=== PATIENT | male | born 1950 | race Caucasian/White ===

== ENCOUNTER 2017-11-27 05:25 | Inpatient (IN) | payer MEDICARE, BC ==
[2017-11-27] MEDS: ASPIRIN 325 MG TAB PO (06:35)
[2017-11-27] MEDS: NITROGLYCERIN 2% 1 GM OINT PKT TD (06:36)
[2017-11-27] MEDS: FUROSEMIDE 40 MG INJ IV ×3 (06:36→18:24)
[2017-11-27] MEDS: morphine 4 MG/ML VIAL IV (06:37)
[2017-11-27 06:46] LABS: ADD MAN DIFF? NO
[2017-11-27 06:49] LABS: BASOPHIL # 0.1 10^3/ul (0.0-0.1); BASOPHILS % 0.8 % (0.0-2.0); EOSINOPHILS # 0.2 10^3/ul (0.0-0.5); EOSINOPHILS % 2.5 % (0.0-7.0); HEMATOCRIT 51.4 % (42.0-52.0); HEMOGLOBIN 16.9 g/dl (14.0-18.0); LYMPHOCYTES # 0.7 10^3/ul (0.8-2.9); MEAN CORPUSCULAR HEMOGLOBIN 28.2 pg (29.0-33.0); MEAN CORPUSCULAR HGB CONC 32.9 g/dl (32.0-37.0); MEAN CORPUSCULAR VOLUME 85.8 fl (82.0-101.0); MEAN PLATELET VOLUME 10.1 fl (7.4-10.4); MONOCYTE # 0.6 10^3/ul (0.3-0.9); MONOCYTES % 8.6 % (0.0-11.0); NEUTROPHIL # 4.9 10^3/ul (1.6-7.5); NEUTROPHILS % 76.8 % (39.0-77.0); PLATELET COUNT 213 10^3/UL (140-415); RED BLOOD COUNT 5.99 10^6/ul (4.70-6.10); RED CELL DISTRIBUTION WIDTH 15.8 % (11.5-14.5)
[2017-11-27 06:49] LABS: WHITE BLOOD COUNT 6.4 10^3/ul (4.8-10.8)
[2017-11-27 07:16] LABS: ANION GAP 18 (8-16); BLOOD UREA NITROGEN 16 mg/dl (7-20); CALCIUM 9.1 mg/dl (8.4-10.2); CARBON DIOXIDE 24 mmol/L (21-31); CHLORIDE 112 mmol/L (97-110); CREATININE 1.09 mg/dl (0.61-1.24); GLUCOSE 130 mg/dl (70-220); POTASSIUM 4.2 mmol/L (3.5-5.1); SODIUM 150 mmol/L (135-144)
[2017-11-27 07:28] LABS: TROPONIN-I 0.056 ng/ml (0.00-0.12)
[2017-11-27] MEDS: ONDANSETRON 4 MG INJ IV (07:35)
[2017-11-27 08:10] LABS: B-TYPE NATRIURETIC PEPTIDE 4760 PG/ML (0-125)
[2017-11-27] MEDS ORDERED: ACETAMINOPHEN 325 MG TAB PO ×2 (09:00→14:30)
[2017-11-27] MEDS ORDERED: ONDANSETRON 4 MG INJ IV ×2 (09:00→14:30)
[2017-11-27] MEDS: DILTIAZEM-D5W 125MG/125ML DRIP 125 ML IV (10:32)
[2017-11-27] MEDS ORDERED: NACL 0.9% 3 ML SYG IV (14:30)
[2017-11-27] MEDS ORDERED: DOCUSATE SODIUM 100 MG CAP PO (14:30)
[2017-11-27] MEDS ORDERED: ZOLPIDEM 5 MG TAB PO (14:30)
[2017-11-27] MEDS ORDERED: NITROGLYCERIN (SL) 0.4 MG TAB SL (14:30)
[2017-11-27] MEDS ORDERED: HYDROCODONE/APAP (5/325) TAB PO (14:30)
[2017-11-27] MEDS ORDERED: morphine 2 MG INJ IV (14:30)
[2017-11-27] MEDS ORDERED: hydrALAzine 20 MG INJ IV (16:00)
[2017-11-27 20:28] LABS: CREATINE KINASE 52 IU/L (23-200)
[2017-11-27 20:41] LABS: CK-MB 1.55 ng/ml (0.0-2.4); TROPONIN-I 0.042 ng/ml (0.00-0.12)
[2017-11-27] MEDS ORDERED: APIXABAN 5 MG TABLET PO (21:00)
[2017-11-27] MEDS: FAMOTIDINE 20 MG TAB PO (23:16)
[2017-11-27] MEDS: LISINOPRIL 20 MG TAB PO (23:16)
[2017-11-27] MEDS: APIXABAN 5 MG TABLET PO (23:16)
[2017-11-27] MEDS: AMLODIPINE 5 MG TAB PO (23:17)
[2017-11-28] MEDS: FUROSEMIDE 40 MG INJ IV ×2 (05:35→18:37)
[2017-11-28] MEDS: METOPROLOL (XL) 25 MG TAB PO (08:22)
[2017-11-28] MEDS: APIXABAN 5 MG TABLET PO ×2 (08:29→20:09)
[2017-11-28] MEDS: ASPIRIN 81 MG TAB PO (08:29)
[2017-11-28] MEDS: LISINOPRIL 20 MG TAB PO ×2 (08:30→20:10)
[2017-11-28] MEDS: POTASSIUM CHLORIDE (SR) 20 MEQ TAB PO (08:30)
[2017-11-28] MEDS: AMLODIPINE 5 MG TAB PO ×2 (08:31→20:10)
[2017-11-28] MEDS: FAMOTIDINE 20 MG TAB PO ×2 (08:31→20:10)
[2017-11-28] MEDS ORDERED: AMLODIPINE 5 MG TAB PO (09:00)
[2017-11-28] MEDS ORDERED: ENOXAPARIN 30 MG/0.3 ML SYG SC (09:00)
[2017-11-28] MEDS ORDERED: FUROSEMIDE 40 MG INJ IV (09:00)
[2017-11-28 09:23] LABS: ADD MAN DIFF? NO
[2017-11-28 09:30] LABS: BASOPHILS % 0.6 % (0.0-2.0); EOSINOPHILS # 0.2 10^3/ul (0.0-0.5); EOSINOPHILS % 2.1 % (0.0-7.0); HEMATOCRIT 45.5 % (42.0-52.0); HEMOGLOBIN 14.9 g/dl (14.0-18.0); LYMPHOCYTES # 0.8 10^3/ul (0.8-2.9); MEAN CORPUSCULAR HEMOGLOBIN 28.1 pg (29.0-33.0); MEAN CORPUSCULAR HGB CONC 32.7 g/dl (32.0-37.0); MEAN CORPUSCULAR VOLUME 85.7 fl (82.0-101.0); MEAN PLATELET VOLUME 10.5 fl (7.4-10.4); MONOCYTE # 0.9 10^3/ul (0.3-0.9); MONOCYTES % 12.7 % (0.0-11.0); NEUTROPHIL # 5.1 10^3/ul (1.6-7.5); NEUTROPHILS % 73.5 % (39.0-77.0); PLATELET COUNT 183 10^3/UL (140-415); RED BLOOD COUNT 5.31 10^6/ul (4.70-6.10); RED CELL DISTRIBUTION WIDTH 15.6 % (11.5-14.5)
[2017-11-28 09:37] LABS: HEMOGLOBIN A1C 7.7 % (0-5.9)
[2017-11-28 10:00] LABS: CREATINE KINASE 50 IU/L (23-200)
[2017-11-28 10:10] LABS: CK INDEX 2.5; TROPONIN-I 0.053 ng/ml (0.00-0.12)
[2017-11-28 10:11] LABS: CK-MB 1.25 ng/ml (0.0-2.4)
[2017-11-28 10:12] LABS: ALANINE AMINOTRANSFERASE 26 IU/L (13-69); ALBUMIN 3.1 g/dl (3.3-4.9); ALBUMIN/GLOBULIN RATIO 1.06; ALKALINE PHOSPHATASE 102 IU/L (42-121); ASPARTATE AMINO TRANSFERASE 18 IU/L (15-46); BILIRUBIN,INDIRECT 2.1 mg/dl (0-1.1); BILIRUBIN,TOTAL 2.1 mg/dl (0.2-1.3); BLOOD UREA NITROGEN 21 mg/dl (7-20); CALCIUM 8.8 mg/dl (8.4-10.2); CARBON DIOXIDE 30 mmol/L (21-31); CREATININE 1.07 mg/dl (0.61-1.24); GLUCOSE 125 mg/dl (70-220); MAGNESIUM 1.5 mg/dl (1.7-2.5); POTASSIUM 3.7 mmol/L (3.5-5.1); SODIUM 141 mmol/L (135-144)
[2017-11-28 10:15] LABS: ANION GAP 12 (8-16); CHLORIDE 103 mmol/L (97-110)
[2017-11-28 13:27] LABS: THYROID STIMULATING HORMONE 0.813 MIU/L (0.465-4.680)
[2017-11-28] MEDS: MAGNESIUM SULFATE 1 GM/D5W 100 ML IVPB (17:20)
[2017-11-29] MEDS: FUROSEMIDE 40 MG INJ IV ×2 (05:38→17:58)
[2017-11-29] MEDS: INFLUENZA VIRUS VACCINE 0.5 ML (DISPENSING) IM* (09:00)
[2017-11-29] MEDS: POTASSIUM CHLORIDE (SR) 20 MEQ TAB PO (09:17)
[2017-11-29] MEDS: APIXABAN 5 MG TABLET PO (09:17)
[2017-11-29] MEDS: ASPIRIN 81 MG TAB PO (09:18)
[2017-11-29] MEDS: FAMOTIDINE 20 MG TAB PO (09:18)
[2017-11-29] MEDS: AMLODIPINE 5 MG TAB PO (09:18)
[2017-11-29] MEDS: LISINOPRIL 20 MG TAB PO (09:18)
[2017-11-29 09:47] LABS: ADD MAN DIFF? NO
[2017-11-29 09:51] LABS: WHITE BLOOD COUNT 6.3 10^3/ul (4.8-10.8)
[2017-11-29 09:51] LABS: BASOPHILS % 0.6 % (0.0-2.0); EOSINOPHILS # 0.2 10^3/ul (0.0-0.5); EOSINOPHILS % 3.7 % (0.0-7.0); HEMATOCRIT 47.8 % (42.0-52.0); HEMOGLOBIN 15.7 g/dl (14.0-18.0); LYMPHOCYTES # 0.7 10^3/ul (0.8-2.9); LYMPHOCYTES % 11.1 % (15.0-51.0); MEAN CORPUSCULAR HEMOGLOBIN 27.9 pg (29.0-33.0); MEAN CORPUSCULAR HGB CONC 32.8 g/dl (32.0-37.0); MEAN CORPUSCULAR VOLUME 85.1 fl (82.0-101.0); MEAN PLATELET VOLUME 10.9 fl (7.4-10.4); MONOCYTE # 0.7 10^3/ul (0.3-0.9); MONOCYTES % 10.7 % (0.0-11.0); NEUTROPHIL # 4.6 10^3/ul (1.6-7.5); NEUTROPHILS % 73.6 % (39.0-77.0); PLATELET COUNT 188 10^3/UL (140-415); RED BLOOD COUNT 5.62 10^6/ul (4.70-6.10)
[2017-11-29 10:14] LABS: CREATINE KINASE 47 IU/L (23-200)
[2017-11-29 10:14] LABS: MAGNESIUM 1.6 mg/dl (1.7-2.5)
[2017-11-29 10:24] LABS: CK INDEX 2.1; CK-MB 1.01 ng/ml (0.0-2.4); TROPONIN-I 0.042 ng/ml (0.00-0.12)
[2017-11-29 10:25] LABS: ANION GAP 16 (8-16); BLOOD UREA NITROGEN 22 mg/dl (7-20); CALCIUM 8.9 mg/dl (8.4-10.2); CARBON DIOXIDE 29 mmol/L (21-31); CHLORIDE 101 mmol/L (97-110); CREATININE 1.01 mg/dl (0.61-1.24); GLUCOSE 157 mg/dl (70-220); POTASSIUM 3.8 mmol/L (3.5-5.1); SODIUM 142 mmol/L (135-144)
[2017-11-29] MEDS: MAGNESIUM SULFATE 3 GM in DEXTROSE 5% 100 ML IVPB (15:07)
[2017-11-29] MEDS: LEVALBUTEROL (NEB) 0.63 MG/3 ML AMP HHN (15:41)
[2017-11-29] MEDS ORDERED: DEXTROSE 50% 50 ML SYRINGE IV ×2 (17:30)
[2017-11-29] MEDS ORDERED: GLUCOSE GEL 15 GRAM TUBE BUCCAL (17:30)
[2017-11-29] MEDS ORDERED: GLUCOSE GEL 15 GRAM TUBE PO ×2 (17:30)
[2017-11-29] MEDS ORDERED: GLUCAGON 1 MG INJ IM (17:30)
[2017-11-29] MEDS: Discontinue current oral sulfonylureas (glyburide, glipizide, and/or glimepiride) prior to XX (17:52)
[2017-11-29] MEDS: HYPOGLYCEMIA PROTOCOL when Glucose is <70 mg/dL or symptomatic <90 mg/dL. XX (17:54)
[2017-11-29] MEDS: metFORMIN 500 MG TAB PO (17:58)
[2017-11-29] MEDS: INSULIN ASPART [NOVOLOG] 3 ML PEN SC (18:03)
[2017-11-30] MEDS ORDERED: ACCU-CHEK XX (02:00)
[2017-11-30] MEDS ORDERED: METOLAZONE 5 MG TAB PO (09:00)
[2017-11-30] MEDS ORDERED: LINAGLIPTIN 5 MG TABLET PO (09:00)
== END 2017-11-29 19:51 | disposition left against medical advice (07) | DRG 291 ==
LOC: E/R 05:25 → MS4 08:58
DX: I11.0 Hypertensive heart disease with heart failure (principal); J96.00 Acute respiratory failure, unspecified whether with hypoxia or hypercapnia; E87.0 Hyperosmolality and hypernatremia; I50.43 Acute on chronic combined systolic (congestive) and diastolic (congestive) heart failure; J44.9 Chronic obstructive pulmonary disease, unspecified; E11.9 Type 2 diabetes mellitus without complications; I42.9 Cardiomyopathy, unspecified; Z79.01 Long term (current) use of anticoagulants; Z86.73 Personal history of transient ischemic attack (TIA), and cerebral infarction without residual deficits; I48.91 Unspecified atrial fibrillation; I25.10 Atherosclerotic heart disease of native coronary artery without angina pectoris; Z91.19 Patient's noncompliance with other medical treatment and regimen
CPT/HCPCS: 36415; 71045; 80048; 80053; 82550; 82553; 82962; 83036; 83735; 83880; 84443; 84484; 85025; 93005; 93306; 94664; 96374; 96375; 96376; 99285-25

== ENCOUNTER 2017-12-12 23:33 | Inpatient (IN) | payer MEDICARE, BC ==
[2017-12-13 01:01] LABS: ADD MAN DIFF? NO
[2017-12-13 01:03] LABS: BASOPHIL # 0.1 10^3/ul (0.0-0.1); BASOPHILS % 0.8 % (0.0-2.0); EOSINOPHILS # 0.1 10^3/ul (0.0-0.5); EOSINOPHILS % 1.9 % (0.0-7.0); HEMATOCRIT 47.5 % (42.0-52.0); LYMPHOCYTES # 0.8 10^3/ul (0.8-2.9); LYMPHOCYTES % 13.4 % (15.0-51.0); MEAN CORPUSCULAR HEMOGLOBIN 28.3 pg (29.0-33.0); MEAN CORPUSCULAR HGB CONC 33.7 g/dl (32.0-37.0); MEAN CORPUSCULAR VOLUME 84.1 fl (82.0-101.0); MEAN PLATELET VOLUME 10.1 fl (7.4-10.4); MONOCYTE # 0.6 10^3/ul (0.3-0.9); MONOCYTES % 10.8 % (0.0-11.0); NEUTROPHIL # 4.3 10^3/ul (1.6-7.5); NEUTROPHILS % 72.9 % (39.0-77.0); PLATELET COUNT 232 10^3/UL (140-415); RED BLOOD COUNT 5.65 10^6/ul (4.70-6.10); RED CELL DISTRIBUTION WIDTH 15.7 % (11.5-14.5)
[2017-12-13 01:03] LABS: WHITE BLOOD COUNT 5.9 10^3/ul (4.8-10.8)
[2017-12-13 01:19] LABS: ADD UMIC YES; UR ASCORBIC ACID NEGATIVE (NEGATIVE); UR BILIRUBIN (Dip) NEGATIVE (NEGATIVE); UR BLOOD (Dip) NEGATIVE (NEGATIVE); UR CLARITY CLEAR (CLEAR); UR COLOR YELLOW (YELLOW); UR GLUCOSE (Dip) 2+ mg/dL (NEGATIVE); UR KETONES (Dip) NEGATIVE (NEGATIVE); UR LEUKOCYTE ESTERASE (Dip) NEGATIVE Leu/ul (NEGATIVE); UR NITRITE (Dip) NEGATIVE (NEGATIVE); UR RBC 1 /HPF (0-5); UR SPECIFIC GRAVITY (Dip) 1.011 (1.003-1.030); UR TOTAL PROTEIN (Dip) 3+ mg/dl (NEGATIVE); UR UROBILINOGEN (Dip) 2+ mg/dL (NEGATIVE); UR WBC 0 /HPF (0-5)
[2017-12-13 01:21] LABS: ALANINE AMINOTRANSFERASE 20 IU/L (13-69); ALBUMIN 3.9 g/dl (3.3-4.9); ALBUMIN/GLOBULIN RATIO 1.14; ALKALINE PHOSPHATASE 134 IU/L (42-121); ANION GAP 18 (8-16); ASPARTATE AMINO TRANSFERASE 23 IU/L (15-46); BILIRUBIN,INDIRECT 1.5 mg/dl (0-1.1); BILIRUBIN,TOTAL 1.5 mg/dl (0.2-1.3); BLOOD UREA NITROGEN 12 mg/dl (7-20); CALCIUM 9.2 mg/dl (8.4-10.2); CARBON DIOXIDE 25 mmol/L (21-31); CHLORIDE 107 mmol/L (97-110); CREATININE 0.87 mg/dl (0.61-1.24); GLUCOSE 199 mg/dl (70-220); POTASSIUM 3.7 mmol/L (3.5-5.1); SODIUM 146 mmol/L (135-144); TOTAL PROTEIN 7.3 g/dl (6.1-8.1)
[2017-12-13 01:23] LABS: LACTIC ACID 2.2 mmol/L (0.5-2.0)
[2017-12-13 01:24] LABS: INR 1.12; PROTIME 14.6 Sec (11.9-14.9); PT RATIO 1.1
[2017-12-13 01:25] LABS: PARTIAL THROMBOPLASTIN TIME 37.7 Sec (25.0-35.0)
[2017-12-13 01:33] LABS: B-TYPE NATRIURETIC PEPTIDE 6030 PG/ML (0-125); TROPONIN-I 0.056 ng/ml (0.00-0.12)
[2017-12-13] MEDS: FUROSEMIDE 40 MG INJ IV ×4 (01:58→18:22)
[2017-12-13] MEDS: CEFEPIME 1GM/50 ML (PMX) 50 ML IVPB (03:08)
[2017-12-13] MEDS: VANCOMYCIN 1 GM (PMX) 250 ML IVPB (03:09)
[2017-12-13] MEDS: ENALAPRILAT 1.25 MG INJ IV (04:41)
[2017-12-13] MEDS ORDERED: ENALAPRILAT 1.25 MG INJ IV (05:00)
[2017-12-13 08:33] LABS: LACTIC ACID 1.7 mmol/L (0.5-2.0)
[2017-12-13] MEDS ORDERED: GLUCOSE GEL 15 GRAM TUBE BUCCAL (10:00)
[2017-12-13] MEDS ORDERED: GLUCOSE GEL 15 GRAM TUBE PO ×2 (10:00)
[2017-12-13] MEDS ORDERED: DEXTROSE 50% 50 ML SYRINGE IV ×2 (10:00)
[2017-12-13] MEDS ORDERED: GLUCAGON 1 MG INJ IM (10:00)
[2017-12-13 10:56] LABS: LACTIC ACID 1.8 mmol/L (0.5-2.0)
[2017-12-13] MEDS: INSULIN ASPART [NOVOLOG] 3 ML PEN SC ×3 (13:03→20:51)
[2017-12-13] MEDS: LEVALBUTEROL (NEB) 0.63 MG/3 ML AMP HHN (13:25)
[2017-12-13 19:45] LABS: TROPONIN-I 0.045 ng/ml (0.00-0.12)
[2017-12-13] MEDS: LISINOPRIL 20 MG TAB PO (20:51)
[2017-12-13] MEDS: APIXABAN 5 MG TABLET PO (20:51)
[2017-12-14] MEDS: FUROSEMIDE 40 MG INJ IV ×2 (05:27→17:35)
[2017-12-14 08:31] LABS: ADD MAN DIFF? NO
[2017-12-14 08:40] LABS: BASOPHIL # 0.1 10^3/ul (0.0-0.1); BASOPHILS % 1.2 % (0.0-2.0); EOSINOPHILS # 0.3 10^3/ul (0.0-0.5); EOSINOPHILS % 4.5 % (0.0-7.0); HEMATOCRIT 48.2 % (42.0-52.0); HEMOGLOBIN 16.2 g/dl (14.0-18.0); LYMPHOCYTES # 0.9 10^3/ul (0.8-2.9); LYMPHOCYTES % 14.8 % (15.0-51.0); MEAN CORPUSCULAR HEMOGLOBIN 28.4 pg (29.0-33.0); MEAN CORPUSCULAR HGB CONC 33.6 g/dl (32.0-37.0); MEAN CORPUSCULAR VOLUME 84.4 fl (82.0-101.0); MEAN PLATELET VOLUME 10.5 fl (7.4-10.4); MONOCYTE # 0.7 10^3/ul (0.3-0.9); MONOCYTES % 12.4 % (0.0-11.0); NEUTROPHILS % 66.8 % (39.0-77.0); PLATELET COUNT 200 10^3/UL (140-415); RED BLOOD COUNT 5.71 10^6/ul (4.70-6.10); RED CELL DISTRIBUTION WIDTH 15.7 % (11.5-14.5)
[2017-12-14] MEDS: LISINOPRIL 20 MG TAB PO ×2 (08:44→21:17)
[2017-12-14] MEDS: APIXABAN 5 MG TABLET PO ×2 (08:45→21:16)
[2017-12-14] MEDS: AMLODIPINE 5 MG TAB PO (08:45)
[2017-12-14] MEDS: INSULIN ASPART [NOVOLOG] 3 ML PEN SC ×4 (08:46→21:23)
[2017-12-14 08:52] LABS: ANION GAP 14 (8-16); BLOOD UREA NITROGEN 16 mg/dl (7-20); CALCIUM 8.8 mg/dl (8.4-10.2); CARBON DIOXIDE 33 mmol/L (21-31); CHLORIDE 99 mmol/L (97-110); CREATININE 1.15 mg/dl (0.61-1.24); GLUCOSE 150 mg/dl (70-220); SODIUM 143 mmol/L (135-144)
[2017-12-14 09:04] LABS: POTASSIUM 2.9 mmol/L (3.5-5.1)
[2017-12-14 09:05] LABS: TROPONIN-I 0.053 ng/ml (0.00-0.12)
[2017-12-14] MEDS: POTASSIUM CHLORIDE (SR) 20 MEQ TAB PO ×2 (13:21→17:35)
[2017-12-15] MEDS: FUROSEMIDE 40 MG INJ IV ×2 (05:45→17:26)
[2017-12-15 06:28] LABS: ADD MAN DIFF? NO
[2017-12-15 06:29] LABS: WHITE BLOOD COUNT 6.7 10^3/ul (4.8-10.8)
[2017-12-15 06:29] LABS: BASOPHIL # 0.1 10^3/ul (0.0-0.1); BASOPHILS % 0.7 % (0.0-2.0); EOSINOPHILS # 0.3 10^3/ul (0.0-0.5); EOSINOPHILS % 4.9 % (0.0-7.0); HEMATOCRIT 48.3 % (42.0-52.0); LYMPHOCYTES # 1.2 10^3/ul (0.8-2.9); LYMPHOCYTES % 17.8 % (15.0-51.0); MEAN CORPUSCULAR HEMOGLOBIN 28.2 pg (29.0-33.0); MEAN CORPUSCULAR HGB CONC 33.1 g/dl (32.0-37.0); MEAN PLATELET VOLUME 10.7 fl (7.4-10.4); MONOCYTE # 0.9 10^3/ul (0.3-0.9); MONOCYTES % 13.4 % (0.0-11.0); NEUTROPHIL # 4.2 10^3/ul (1.6-7.5); NEUTROPHILS % 62.9 % (39.0-77.0); PLATELET COUNT 216 10^3/UL (140-415); RED BLOOD COUNT 5.68 10^6/ul (4.70-6.10); RED CELL DISTRIBUTION WIDTH 15.3 % (11.5-14.5)
[2017-12-15 07:18] LABS: ANION GAP 14 (8-16); BLOOD UREA NITROGEN 20 mg/dl (7-20); CALCIUM 8.8 mg/dl (8.4-10.2); CARBON DIOXIDE 30 mmol/L (21-31); CHLORIDE 101 mmol/L (97-110); CREATININE 1.04 mg/dl (0.61-1.24); GLUCOSE 170 mg/dl (70-220); POTASSIUM 3.5 mmol/L (3.5-5.1); SODIUM 141 mmol/L (135-144)
[2017-12-15] MEDS: APIXABAN 5 MG TABLET PO ×2 (08:41→20:59)
[2017-12-15] MEDS: AMLODIPINE 5 MG TAB PO (08:41)
[2017-12-15] MEDS: LISINOPRIL 20 MG TAB PO ×2 (08:41→20:59)
[2017-12-15] MEDS: INSULIN ASPART [NOVOLOG] 3 ML PEN SC ×4 (08:45→21:02)
[2017-12-15] MEDS: LEVALBUTEROL (NEB) 0.63 MG/3 ML AMP HHN (21:06)
[2017-12-16] MEDS: FUROSEMIDE 40 MG INJ IV (05:40)
[2017-12-16] MEDS: APIXABAN 5 MG TABLET PO (08:34)
[2017-12-16] MEDS: AMLODIPINE 5 MG TAB PO (08:35)
[2017-12-16] MEDS: LISINOPRIL 20 MG TAB PO (08:36)
[2017-12-16] MEDS: INSULIN ASPART [NOVOLOG] 3 ML PEN SC ×2 (08:38→12:41)
== END 2017-12-16 17:35 | disposition left against medical advice (07) | DRG 871 ==
LOC: E/R 23:33 → MS4 12-13 02:30
PROVIDERS: Internal Medicine
DX: A41.9 Sepsis, unspecified organism (principal); J96.01 Acute respiratory failure with hypoxia; J18.9 Pneumonia, unspecified organism; I50.43 Acute on chronic combined systolic (congestive) and diastolic (congestive) heart failure; J81.1 Chronic pulmonary edema; I42.9 Cardiomyopathy, unspecified; E87.0 Hyperosmolality and hypernatremia; J44.0 Chronic obstructive pulmonary disease with (acute) lower respiratory infection; I11.0 Hypertensive heart disease with heart failure; R65.20 Severe sepsis without septic shock; E11.9 Type 2 diabetes mellitus without complications; Z86.73 Personal history of transient ischemic attack (TIA), and cerebral infarction without residual deficits; Z98.890 Other specified postprocedural states; I48.91 Unspecified atrial fibrillation; E78.5 Hyperlipidemia, unspecified; I25.10 Atherosclerotic heart disease of native coronary artery without angina pectoris; Z91.19 Patient's noncompliance with other medical treatment and regimen; G47.33 Obstructive sleep apnea (adult) (pediatric); Z68.28 Body mass index [BMI] 28.0-28.9, adult; E66.9 Obesity, unspecified; Z79.01 Long term (current) use of anticoagulants; E87.6 Hypokalemia
CPT/HCPCS: 36415; 71045; 80048; 80053; 81001; 82962; 83605; 83880; 84484; 85025; 85610; 85730; 87040; 87086; 93005; 94640; 94664; 96374; 96375; 96376; 99291-25

== ENCOUNTER 2018-01-04 00:49 | Emergency (ER) | payer MEDICARE, BC ==
[2018-01-04] MEDS: FUROSEMIDE 40 MG INJ IV (01:50)
[2018-01-04 01:59] LABS: ADD MAN DIFF? NO
[2018-01-04 02:03] LABS: WHITE BLOOD COUNT 4.9 10^3/ul (4.8-10.8)
[2018-01-04 02:03] LABS: BASOPHIL # 0.1 10^3/ul (0.0-0.1); EOSINOPHILS # 0.1 10^3/ul (0.0-0.5); EOSINOPHILS % 2.3 % (0.0-7.0); HEMATOCRIT 46.4 % (42.0-52.0); HEMOGLOBIN 15.5 g/dl (14.0-18.0); LYMPHOCYTES # 1.3 10^3/ul (0.8-2.9); LYMPHOCYTES % 26.6 % (15.0-51.0); MEAN CORPUSCULAR HGB CONC 33.4 g/dl (32.0-37.0); MEAN CORPUSCULAR VOLUME 86.9 fl (82.0-101.0); MEAN PLATELET VOLUME 10.3 fl (7.4-10.4); MONOCYTE # 0.7 10^3/ul (0.3-0.9); MONOCYTES % 13.7 % (0.0-11.0); NEUTROPHIL # 2.7 10^3/ul (1.6-7.5); NEUTROPHILS % 56.2 % (39.0-77.0); PLATELET COUNT 234 10^3/UL (140-415); RED BLOOD COUNT 5.34 10^6/ul (4.70-6.10); RED CELL DISTRIBUTION WIDTH 17.4 % (11.5-14.5)
[2018-01-04 02:19] LABS: ALANINE AMINOTRANSFERASE 21 IU/L (13-69); ALBUMIN 3.4 g/dl (3.3-4.9); ALBUMIN/GLOBULIN RATIO 1.13; ALKALINE PHOSPHATASE 104 IU/L (42-121); ANION GAP 19 (8-16); ASPARTATE AMINO TRANSFERASE 18 IU/L (15-46); BILIRUBIN,INDIRECT 0.2 mg/dl (0-1.1); BILIRUBIN,TOTAL 0.2 mg/dl (0.2-1.3); BLOOD UREA NITROGEN 14 mg/dl (7-20); CALCIUM 8.7 mg/dl (8.4-10.2); CARBON DIOXIDE 23 mmol/L (21-31); CHLORIDE 111 mmol/L (97-110); CREATININE 1.31 mg/dl (0.61-1.24); GLUCOSE 147 mg/dl (70-220); POTASSIUM 3.9 mmol/L (3.5-5.1); SODIUM 149 mmol/L (135-144); TOTAL PROTEIN 6.4 g/dl (6.1-8.1)
[2018-01-04 02:22] LABS: INR 1.09; PROTIME 14.2 Sec (11.9-14.9); PT RATIO 1.1
[2018-01-04 02:23] LABS: PARTIAL THROMBOPLASTIN TIME 36.2 Sec (25.0-35.0)
[2018-01-04 02:30] LABS: B-TYPE NATRIURETIC PEPTIDE 4040 PG/ML (0-125); TROPONIN-I 0.032 ng/ml (0.00-0.12)
[2018-01-04 03:38] LABS: MAGNESIUM 1.9 mg/dl (1.7-2.5)
[2018-01-04] MEDS ORDERED: NITROGLYCERIN (SL) 0.4 MG TAB SL (04:00)
[2018-01-04] MEDS ORDERED: morphine 2 MG INJ IV (04:00)
[2018-01-04] MEDS ORDERED: BISACODYL 10 MG SUPP PR (04:00)
[2018-01-04] MEDS ORDERED: ONDANSETRON 4 MG INJ IV (04:00)
[2018-01-04] MEDS ORDERED: NACL 0.9% 3 ML SYG IV (04:00)
[2018-01-04] MEDS ORDERED: ACETAMINOPHEN 325 MG TAB PO (04:00)
[2018-01-04] MEDS ORDERED: MAGNESIUM HYDROXIDE 30ML CUP PO (04:00)
[2018-01-04] MEDS ORDERED: DOCUSATE SODIUM 100 MG CAP PO (04:00)
[2018-01-04] MEDS ORDERED: HALOPERIDOL 5 MG INJ IM (04:00)
[2018-01-04] MEDS ORDERED: FUROSEMIDE 40 MG INJ IV (06:00)
[2018-01-04] MEDS ORDERED: FAMOTIDINE 20 MG TAB PO (09:00)
[2018-01-04] MEDS ORDERED: APIXABAN 5 MG TABLET PO (09:00)
[2018-01-04] MEDS ORDERED: AMLODIPINE 5 MG TAB PO (09:00)
[2018-01-04] MEDS ORDERED: LISINOPRIL 20 MG TAB PO (09:00)
== END 2018-01-04 04:07 | disposition left against medical advice (07) ==
LOC: E/R 00:49
DX: J96.00 Acute respiratory failure, unspecified whether with hypoxia or hypercapnia (principal); I50.9 Heart failure, unspecified; I49.8 Other specified cardiac arrhythmias; I10 Essential (primary) hypertension; J44.9 Chronic obstructive pulmonary disease, unspecified; I25.10 Atherosclerotic heart disease of native coronary artery without angina pectoris; E11.9 Type 2 diabetes mellitus without complications; Z86.73 Personal history of transient ischemic attack (TIA), and cerebral infarction without residual deficits; Z79.84 Long term (current) use of oral hypoglycemic drugs
CPT/HCPCS: 36415; 71045; 80053; 82962; 83735; 83880; 84443; 84484; 85025; 85610; 85730; 93005; 96374; 99291-25

== ENCOUNTER 2018-02-22 04:28 | Emergency (ER) | payer MEDICARE, BC ==
[2018-02-22] MEDS: ONDANSETRON 4 MG INJ IV (05:46)
[2018-02-22] MEDS: morphine 2 MG INJ IV (05:46)
[2018-02-22 06:01] LABS: ADD MAN DIFF? NO
[2018-02-22 06:05] LABS: WHITE BLOOD COUNT 7.2 10^3/ul (4.8-10.8)
[2018-02-22 06:05] LABS: BASOPHIL # 0.1 10^3/ul (0.0-0.1); BASOPHILS % 0.7 % (0.0-2.0); EOSINOPHILS # 0.2 10^3/ul (0.0-0.5); EOSINOPHILS % 3.1 % (0.0-7.0); HEMATOCRIT 49.1 % (42.0-52.0); HEMOGLOBIN 16.1 g/dl (14.0-18.0); LYMPHOCYTES % 13.5 % (15.0-51.0); MEAN CORPUSCULAR HEMOGLOBIN 28.4 pg (29.0-33.0); MEAN CORPUSCULAR HGB CONC 32.8 g/dl (32.0-37.0); MEAN CORPUSCULAR VOLUME 86.7 fl (82.0-101.0); MEAN PLATELET VOLUME 11.2 fl (7.4-10.4); MONOCYTE # 0.8 10^3/ul (0.3-0.9); MONOCYTES % 10.9 % (0.0-11.0); NEUTROPHIL # 5.1 10^3/ul (1.6-7.5); NEUTROPHILS % 71.5 % (39.0-77.0); PLATELET COUNT 211 10^3/UL (140-415); RED BLOOD COUNT 5.66 10^6/ul (4.70-6.10); RED CELL DISTRIBUTION WIDTH 17.6 % (11.5-14.5)
[2018-02-22 06:23] LABS: ALANINE AMINOTRANSFERASE 19 IU/L (13-69); ALBUMIN 4.2 g/dl (3.3-4.9); ALBUMIN/GLOBULIN RATIO 1.13; ALKALINE PHOSPHATASE 153 IU/L (42-121); ANION GAP 19 (8-16); ASPARTATE AMINO TRANSFERASE 23 IU/L (15-46); BILIRUBIN,INDIRECT 1.1 mg/dl (0-1.1); BILIRUBIN,TOTAL 1.1 mg/dl (0.2-1.3); BLOOD UREA NITROGEN 23 mg/dl (7-20); CALCIUM 9.8 mg/dl (8.4-10.2); CARBON DIOXIDE 26 mmol/L (21-31); CHLORIDE 105 mmol/L (97-110); GLUCOSE 178 mg/dl (70-220); LIPASE 179 U/L (23-300); SODIUM 146 mmol/L (135-144); TOTAL PROTEIN 7.9 g/dl (6.1-8.1)
[2018-02-22 06:25] LABS: INR 1.02; PROTIME 13.5 Sec (11.9-14.9); PT RATIO 1.1
[2018-02-22 06:26] LABS: PARTIAL THROMBOPLASTIN TIME 35.8 Sec (25.0-35.0)
[2018-02-22 06:33] LABS: B-TYPE NATRIURETIC PEPTIDE 2930 PG/ML (0-125); TROPONIN-I 0.053 ng/ml (0.000-0.120)
[2018-02-22 07:52] LABS: ADD UMIC YES; UR ASCORBIC ACID NEGATIVE (NEGATIVE); UR BILIRUBIN (Dip) NEGATIVE (NEGATIVE); UR BLOOD (Dip) NEGATIVE (NEGATIVE); UR CLARITY CLEAR (CLEAR); UR COLOR YELLOW (YELLOW); UR GLUCOSE (Dip) NEGATIVE (NEGATIVE); UR KETONES (Dip) NEGATIVE (NEGATIVE); UR LEUKOCYTE ESTERASE (Dip) NEGATIVE Leu/ul (NEGATIVE); UR NITRITE (Dip) NEGATIVE (NEGATIVE); UR RBC 0 /HPF (0-5); UR SPECIFIC GRAVITY (Dip) 1.016 (1.003-1.030); UR TOTAL PROTEIN (Dip) 2+ mg/dl (NEGATIVE); UR UROBILINOGEN (Dip) 1+ mg/dL (NEGATIVE); UR WBC 1 /HPF (0-5)
[2018-02-22] MEDS: HYDROmorphONE 2 MG/ML SYG IM (08:13)
== END 2018-02-22 09:03 | disposition home or self-care (01) ==
LOC: E/R 04:28
DX: R10.9 Unspecified abdominal pain (principal); I50.9 Heart failure, unspecified; I10 Essential (primary) hypertension; I25.10 Atherosclerotic heart disease of native coronary artery without angina pectoris; J44.9 Chronic obstructive pulmonary disease, unspecified; E11.9 Type 2 diabetes mellitus without complications; Z79.01 Long term (current) use of anticoagulants
CPT/HCPCS: 36415; 74176; 76705; 80053; 81001; 83690; 83880; 84484; 85025; 85610; 85730; 96372; 96374; 96375; 99285-25

== ENCOUNTER 2018-02-26 19:31 | Inpatient (IN) | payer MEDICARE, BC ==
[2018-02-26 21:31] LABS: ADD MAN DIFF? NO
[2018-02-26 21:34] LABS: WHITE BLOOD COUNT 5.4 10^3/ul (4.8-10.8)
[2018-02-26 21:34] LABS: BASOPHIL # 0.1 10^3/ul (0.0-0.1); BASOPHILS % 1.1 % (0.0-2.0); EOSINOPHILS # 0.1 10^3/ul (0.0-0.5); EOSINOPHILS % 2.2 % (0.0-7.0); HEMATOCRIT 48.3 % (42.0-52.0); HEMOGLOBIN 15.7 g/dl (14.0-18.0); LYMPHOCYTES # 1.1 10^3/ul (0.8-2.9); MEAN CORPUSCULAR HEMOGLOBIN 28.4 pg (29.0-33.0); MEAN CORPUSCULAR HGB CONC 32.5 g/dl (32.0-37.0); MEAN CORPUSCULAR VOLUME 87.5 fl (82.0-101.0); MEAN PLATELET VOLUME 10.3 fl (7.4-10.4); MONOCYTES % 18.6 % (0.0-11.0); NEUTROPHIL # 3.1 10^3/ul (1.6-7.5); NEUTROPHILS % 56.7 % (39.0-77.0); PLATELET COUNT 240 10^3/UL (140-415); RED BLOOD COUNT 5.52 10^6/ul (4.70-6.10); RED CELL DISTRIBUTION WIDTH 17.2 % (11.5-14.5)
[2018-02-26 21:48] LABS: ALANINE AMINOTRANSFERASE 26 IU/L (13-69); ALBUMIN 4.1 g/dl (3.3-4.9); ALKALINE PHOSPHATASE 130 IU/L (42-121); ANION GAP 13 (8-16); ASPARTATE AMINO TRANSFERASE 17 IU/L (15-46); BILIRUBIN,INDIRECT 0.7 mg/dl (0-1.1); BILIRUBIN,TOTAL 0.7 mg/dl (0.2-1.3); BLOOD UREA NITROGEN 21 mg/dl (7-20); CALCIUM 9.5 mg/dl (8.4-10.2); CARBON DIOXIDE 29 mmol/L (21-31); CHLORIDE 107 mmol/L (97-110); CREATININE 0.99 mg/dl (0.61-1.24); GLUCOSE 152 mg/dl (70-220); LIPASE 201 U/L (23-300); SODIUM 145 mmol/L (135-144); TOTAL PROTEIN 7.5 g/dl (6.1-8.1)
[2018-02-26 22:01] LABS: B-TYPE NATRIURETIC PEPTIDE 3500 PG/ML (0-125); TROPONIN-I 0.029 ng/ml (0.000-0.120)
[2018-02-26] MEDS: morphine 4 MG/ML VIAL IV (22:10)
[2018-02-26] MEDS: ONDANSETRON 4 MG INJ IV (22:10)
[2018-02-26] MEDS: ENALAPRILAT 1.25 MG INJ IV (22:11)
[2018-02-26] MEDS: NITROGLYCERIN (SL) 0.4 MG TAB SL (22:11)
[2018-02-26] MEDS: FUROSEMIDE 40 MG INJ IV (22:11)
[2018-02-26] MEDS: ASPIRIN 81 MG TAB PO (22:11)
[2018-02-26 22:58] LABS: AADO2 Arterial 87.6 mmHg (7.0-24.0); Allen Test ACCEPTAB; Arterial Base Excess 2.1 mmol/L (-3.0-3); Arterial COHb 0.7 % (0.0-3.0); Arterial Fraction of Oxyhgb 92.3 % (93.0-99.0); Arterial HCO3 26.2 mmol/L (22.0-26.0); Arterial MetHb 0.1 % (0.0-1.5); Arterial Total Hemglobin 15.7 g/dl (12.0-18.0); Arterial pCO2 39.5 mmhg (35-45); MODE NASAL CANNULA; Site Right Radial
[2018-02-26] MEDS ORDERED: ZOLPIDEM 5 MG TAB PO (23:00)
[2018-02-26] MEDS ORDERED: ONDANSETRON 4 MG INJ IV (23:00)
[2018-02-26] MEDS ORDERED: ACETAMINOPHEN 325 MG TAB PO (23:00)
[2018-02-27 06:07] LABS: ADD MAN DIFF? NO
[2018-02-27 06:13] LABS: WHITE BLOOD COUNT 6.1 10^3/ul (4.8-10.8)
[2018-02-27 06:13] LABS: BASOPHIL # 0.1 10^3/ul (0.0-0.1); EOSINOPHILS # 0.2 10^3/ul (0.0-0.5); EOSINOPHILS % 3.3 % (0.0-7.0); HEMATOCRIT 46.1 % (42.0-52.0); HEMOGLOBIN 14.9 g/dl (14.0-18.0); LYMPHOCYTES % 15.9 % (15.0-51.0); MEAN CORPUSCULAR HEMOGLOBIN 28.2 pg (29.0-33.0); MEAN CORPUSCULAR HGB CONC 32.3 g/dl (32.0-37.0); MEAN CORPUSCULAR VOLUME 87.3 fl (82.0-101.0); MEAN PLATELET VOLUME 10.7 fl (7.4-10.4); NEUTROPHIL # 3.9 10^3/ul (1.6-7.5); NEUTROPHILS % 63.5 % (39.0-77.0); PLATELET COUNT 215 10^3/UL (140-415); RED BLOOD COUNT 5.28 10^6/ul (4.70-6.10); RED CELL DISTRIBUTION WIDTH 17.2 % (11.5-14.5)
[2018-02-27 06:30] LABS: ANION GAP 15 (8-16); BLOOD UREA NITROGEN 21 mg/dl (7-20); CALCIUM 8.8 mg/dl (8.4-10.2); CARBON DIOXIDE 28 mmol/L (21-31); CHLORIDE 107 mmol/L (97-110); CHOL/HDL RATIO 3.1 RATIO; CHOLESTEROL 162 mg/dl (100-200); CREATININE 1.09 mg/dl (0.61-1.24); GLUCOSE 166 mg/dl (70-220); HDL CHOLESTEROL 51 mg/dl (30-78); LDL CHOLESTEROL,CALCULATED 91 mg/dl; POTASSIUM 3.8 mmol/L (3.5-5.1); SODIUM 146 mmol/L (135-144); TRIGLYCERIDES 98 mg/dl (0-149)
[2018-02-27 06:39] LABS: B-TYPE NATRIURETIC PEPTIDE 3420 PG/ML (0-125)
[2018-02-27] MEDS: PANTOPRAZOLE (EC) 40 MG TAB PO (06:39)
[2018-02-27] MEDS: POTASSIUM CHLORIDE 20 MEQ POWDER FOR ORAL SOLN PO (08:41)
[2018-02-27] MEDS: AMLODIPINE 5 MG TAB PO (08:41)
[2018-02-27] MEDS: ASPIRIN (EC) 325 MG TAB PO (08:41)
[2018-02-27] MEDS: FUROSEMIDE 40 MG INJ IV ×2 (09:04→18:10)
[2018-02-27] MEDS ORDERED: morphine 2 MG INJ IV (13:30)
[2018-02-27] MEDS ORDERED: BISACODYL 10 MG SUPP PR (13:30)
[2018-02-27] MEDS ORDERED: ONDANSETRON 4 MG INJ IV (13:30)
[2018-02-27] MEDS ORDERED: MAGNESIUM HYDROXIDE 30ML CUP PO (13:30)
[2018-02-27] MEDS ORDERED: DOCUSATE SODIUM 100 MG CAP PO (13:30)
[2018-02-27] MEDS ORDERED: NITROGLYCERIN (SL) 0.4 MG TAB SL (13:30)
[2018-02-27] MEDS ORDERED: NACL 0.9% 3 ML SYG IV (13:30)
[2018-02-27] MEDS ORDERED: ENOXAPARIN 100 MG/ML SYG SC (15:00)
[2018-02-27] MEDS: APIXABAN 5 MG TABLET PO (18:10)
[2018-02-27 19:19] LABS: CREATINE KINASE 29 IU/L (23-200)
[2018-02-27 19:32] LABS: TROPONIN-I 0.028 ng/ml (0.000-0.120)
[2018-02-27 19:41] LABS: CK-MB 0.57 ng/ml (0.0-2.4)
[2018-02-27] MEDS: FAMOTIDINE 20 MG TAB PO (21:30)
[2018-02-28] MEDS: PANTOPRAZOLE (EC) 40 MG TAB PO (06:38)
[2018-02-28] MEDS: FUROSEMIDE 40 MG INJ IV ×2 (06:38→18:42)
[2018-02-28] MEDS ORDERED: ENOXAPARIN 40 MG/0.4 ML SYG SC (09:00)
[2018-02-28 09:11] LABS: ADD MAN DIFF? NO
[2018-02-28] MEDS: APIXABAN 5 MG TABLET PO ×2 (09:12→21:04)
[2018-02-28] MEDS: LISINOPRIL 10 MG TAB PO ×2 (09:12→21:05)
[2018-02-28] MEDS: FAMOTIDINE 20 MG TAB PO ×2 (09:12→21:04)
[2018-02-28] MEDS: POTASSIUM CHLORIDE 20 MEQ POWDER FOR ORAL SOLN PO (09:12)
[2018-02-28 09:21] LABS: BASOPHIL # 0.1 10^3/ul (0.0-0.1); BASOPHILS % 0.9 % (0.0-2.0); EOSINOPHILS # 0.2 10^3/ul (0.0-0.5); EOSINOPHILS % 2.9 % (0.0-7.0); HEMATOCRIT 45.5 % (42.0-52.0); HEMOGLOBIN 14.7 g/dl (14.0-18.0); LYMPHOCYTES # 0.8 10^3/ul (0.8-2.9); LYMPHOCYTES % 14.6 % (15.0-51.0); MEAN CORPUSCULAR HEMOGLOBIN 28.3 pg (29.0-33.0); MEAN CORPUSCULAR HGB CONC 32.3 g/dl (32.0-37.0); MEAN CORPUSCULAR VOLUME 87.5 fl (82.0-101.0); MEAN PLATELET VOLUME 10.6 fl (7.4-10.4); MONOCYTE # 0.8 10^3/ul (0.3-0.9); NEUTROPHIL # 3.7 10^3/ul (1.6-7.5); NEUTROPHILS % 66.2 % (39.0-77.0); PLATELET COUNT 220 10^3/UL (140-415); RED CELL DISTRIBUTION WIDTH 17.2 % (11.5-14.5)
[2018-02-28 09:21] LABS: WHITE BLOOD COUNT 5.5 10^3/ul (4.8-10.8)
[2018-02-28 09:49] LABS: ALANINE AMINOTRANSFERASE 24 IU/L (13-69); ALBUMIN 3.4 g/dl (3.3-4.9); ALBUMIN/GLOBULIN RATIO 1.06; ALKALINE PHOSPHATASE 123 IU/L (42-121); ANION GAP 13 (8-16); ASPARTATE AMINO TRANSFERASE 15 IU/L (15-46); BILIRUBIN,INDIRECT 0.9 mg/dl (0-1.1); BILIRUBIN,TOTAL 0.9 mg/dl (0.2-1.3); BLOOD UREA NITROGEN 17 mg/dl (7-20); CALCIUM 8.8 mg/dl (8.4-10.2); CARBON DIOXIDE 30 mmol/L (21-31); CHLORIDE 106 mmol/L (97-110); CREATININE 1.01 mg/dl (0.61-1.24); GLUCOSE 144 mg/dl (70-220); MAGNESIUM 1.6 mg/dl (1.7-2.5); POTASSIUM 3.3 mmol/L (3.5-5.1); SODIUM 146 mmol/L (135-144); TOTAL PROTEIN 6.6 g/dl (6.1-8.1)
[2018-02-28] MEDS: POTASSIUM CHLORIDE (SR) 20 MEQ TAB PO (10:48)
[2018-02-28] MEDS: MAGNESIUM SULFATE 4 GM/100 ML 100 ML IVPB (11:28)
[2018-02-28] MEDS: hydrALAzine 20 MG INJ IV (14:39)
[2018-03-01] MEDS: FUROSEMIDE 40 MG INJ IV ×2 (06:30→18:00)
[2018-03-01] MEDS: PANTOPRAZOLE (EC) 40 MG TAB PO (06:31)
[2018-03-01 09:02] LABS: ANION GAP 12 (8-16); BLOOD UREA NITROGEN 17 mg/dl (7-20); CALCIUM 8.9 mg/dl (8.4-10.2); CARBON DIOXIDE 28 mmol/L (21-31); CHLORIDE 105 mmol/L (97-110); CREATININE 1.05 mg/dl (0.61-1.24); GLUCOSE 160 mg/dl (70-220); POTASSIUM 3.6 mmol/L (3.5-5.1); SODIUM 141 mmol/L (135-144)
[2018-03-01 09:03] LABS: MAGNESIUM 1.9 mg/dl (1.7-2.5)
[2018-03-01 09:03] LABS: PHOSPHORUS 3.7 mg/dl (2.5-4.9)
[2018-03-01] MEDS: APIXABAN 5 MG TABLET PO ×2 (09:12→20:12)
[2018-03-01] MEDS: hydrALAzine 20 MG INJ IV (09:12)
[2018-03-01] MEDS: SPIRONOLACTONE 25 MG TAB PO (09:13)
[2018-03-01] MEDS: POTASSIUM CHLORIDE 20 MEQ POWDER FOR ORAL SOLN PO (09:13)
[2018-03-01] MEDS: LISINOPRIL 10 MG TAB PO ×2 (09:13→20:13)
[2018-03-01] MEDS: FAMOTIDINE 20 MG TAB PO ×2 (09:14→20:13)
[2018-03-01] MEDS: POTASSIUM CHLORIDE (SR) 20 MEQ TAB PO (10:23)
[2018-03-01] MEDS: MAGNESIUM SULFATE 2 GM/50 ML 50 ML IVPB (10:23)
[2018-03-01] MEDS ORDERED: morphine LIQ (10 MG/5 ML) CUP PO (17:30)
[2018-03-02] MEDS: PANTOPRAZOLE (EC) 40 MG TAB PO (06:00)
[2018-03-02] MEDS: FUROSEMIDE 40 MG INJ IV (06:00)
[2018-03-02 07:10] LABS: ANION GAP 12 (8-16); BLOOD UREA NITROGEN 17 mg/dl (7-20); CALCIUM 8.9 mg/dl (8.4-10.2); CARBON DIOXIDE 28 mmol/L (21-31); CHLORIDE 105 mmol/L (97-110); CREATININE 1.05 mg/dl (0.61-1.24); GLUCOSE 161 mg/dl (70-220); POTASSIUM 3.9 mmol/L (3.5-5.1); SODIUM 141 mmol/L (135-144)
[2018-03-02 07:32] LABS: MAGNESIUM 1.9 mg/dl (1.7-2.5)
[2018-03-02 07:32] LABS: PHOSPHORUS 3.5 mg/dl (2.5-4.9)
[2018-03-02] MEDS: POTASSIUM CHLORIDE 20 MEQ POWDER FOR ORAL SOLN PO (08:51)
[2018-03-02] MEDS: APIXABAN 5 MG TABLET PO (08:51)
[2018-03-02] MEDS: FAMOTIDINE 20 MG TAB PO (08:51)
[2018-03-02] MEDS: LISINOPRIL 10 MG TAB PO (08:52)
[2018-03-02] MEDS: SPIRONOLACTONE 25 MG TAB PO (08:52)
[2018-03-02] MEDS: FUROSEMIDE 40 MG TAB PO (10:35)
== END 2018-03-02 17:55 | disposition home health service (06) | DRG 292 ==
LOC: TEL 22:50 → E/R 19:31
DX: I11.0 Hypertensive heart disease with heart failure (principal); I50.23 Acute on chronic systolic (congestive) heart failure; I25.810 Atherosclerosis of coronary artery bypass graft(s) without angina pectoris; E87.0 Hyperosmolality and hypernatremia; I48.2 Chronic atrial fibrillation; I42.9 Cardiomyopathy, unspecified; Z91.14 Patient's other noncompliance with medication regimen
CPT/HCPCS: 36415; 36600; 80048; 80053; 80061; 82550; 82553; 82803; 83690; 83735; 83880; 84100; 84484; 85025; 93005; 93306; 96374; 96375; 96376; 99291-25

== ENCOUNTER 2018-03-23 14:10 | Inpatient (IN) | payer MEDICARE, BC ==
[2018-03-23 16:21] LABS: ADD MAN DIFF? NO
[2018-03-23 16:24] LABS: WHITE BLOOD COUNT 6.9 10^3/ul (4.8-10.8)
[2018-03-23 16:24] LABS: BASOPHIL # 0.1 10^3/ul (0.0-0.1); BASOPHILS % 0.7 % (0.0-2.0); EOSINOPHILS % 0.1 % (0.0-7.0); HEMATOCRIT 52.3 % (42.0-52.0); HEMOGLOBIN 17.7 g/dl (14.0-18.0); LYMPHOCYTES # 0.7 10^3/ul (0.8-2.9); LYMPHOCYTES % 10.7 % (15.0-51.0); MEAN CORPUSCULAR HEMOGLOBIN 28.5 pg (29.0-33.0); MEAN CORPUSCULAR HGB CONC 33.8 g/dl (32.0-37.0); MEAN CORPUSCULAR VOLUME 84.2 fl (82.0-101.0); MEAN PLATELET VOLUME 10.7 fl (7.4-10.4); MONOCYTE # 0.3 10^3/ul (0.3-0.9); MONOCYTES % 4.8 % (0.0-11.0); NEUTROPHIL # 5.8 10^3/ul (1.6-7.5); NEUTROPHILS % 83.4 % (39.0-77.0); PLATELET COUNT 202 10^3/UL (140-415); RED BLOOD COUNT 6.21 10^6/ul (4.70-6.10); RED CELL DISTRIBUTION WIDTH 17.6 % (11.5-14.5)
[2018-03-23] MEDS: ONDANSETRON 4 MG INJ IV (16:25)
[2018-03-23] MEDS: LABETALOL HCL 20MG INJ IV (16:32)
[2018-03-23 16:36] LABS: ADD UMIC YES; UR ASCORBIC ACID NEGATIVE (NEGATIVE); UR BILIRUBIN (Dip) NEGATIVE (NEGATIVE); UR BLOOD (Dip) 1+ mg/dL (NEGATIVE); UR CLARITY CLEAR (CLEAR); UR COLOR YELLOW (YELLOW); UR GLUCOSE (Dip) 1+ mg/dL (NEGATIVE); UR KETONES (Dip) 2+ mg/dL (NEGATIVE); UR LEUKOCYTE ESTERASE (Dip) NEGATIVE Leu/ul (NEGATIVE); UR NITRITE (Dip) NEGATIVE (NEGATIVE); UR RBC 1 /HPF (0-5); UR TOTAL PROTEIN (Dip) 3+ mg/dl (NEGATIVE); UR UROBILINOGEN (Dip) 1+ mg/dL (NEGATIVE); UR WBC 4 /HPF (0-5)
[2018-03-23 16:41] LABS: ANION GAP 26 (8-16); BLOOD UREA NITROGEN 21 mg/dl (7-20); CALCIUM 10.1 mg/dl (8.4-10.2); CARBON DIOXIDE 22 mmol/L (21-31); CHLORIDE 100 mmol/L (97-110); CREATININE 0.97 mg/dl (0.61-1.24); GLUCOSE 172 mg/dl (70-220); POTASSIUM 4.9 mmol/L (3.5-5.1); SODIUM 143 mmol/L (135-144)
[2018-03-23 16:53] LABS: B-TYPE NATRIURETIC PEPTIDE 4880 PG/ML (0-125); TROPONIN-I 0.043 ng/ml (0.000-0.120)
[2018-03-23 17:00] LABS: ALANINE AMINOTRANSFERASE 35 IU/L (13-69); ALBUMIN 4.9 g/dl (3.3-4.9); ALKALINE PHOSPHATASE 170 IU/L (42-121); ASPARTATE AMINO TRANSFERASE 40 IU/L (15-46); BILIRUBIN,INDIRECT 1.7 mg/dl (0-1.1); BILIRUBIN,TOTAL 1.7 mg/dl (0.2-1.3); LIPASE 132 U/L (23-300); TOTAL PROTEIN 7.9 g/dl (6.1-8.1)
[2018-03-23] MEDS: LIDOCAINE/MYLANTA 40 ML BTL PO (17:20)
[2018-03-23] MEDS: ASPIRIN 81 MG TAB PO (17:33)
[2018-03-23] MEDS: FUROSEMIDE 40 MG INJ IV ×2 (17:33→17:34)
[2018-03-23] MEDS ORDERED: NACL 0.9% 3 ML SYG IV (19:30)
[2018-03-23] MEDS ORDERED: NITROGLYCERIN (SL) 0.4 MG TAB SL (19:30)
[2018-03-23] MEDS ORDERED: morphine 2 MG INJ IV (19:30)
[2018-03-23] MEDS ORDERED: LABETALOL HCL 20MG INJ IV (19:30)
[2018-03-23] MEDS ORDERED: ONDANSETRON 4 MG INJ IV (19:30)
[2018-03-23] MEDS ORDERED: hydrALAzine 20 MG INJ IV (19:30)
[2018-03-23] MEDS ORDERED: DOCUSATE SODIUM 100 MG CAP PO (19:30)
[2018-03-23] MEDS: LISINOPRIL 10 MG TAB PO (20:52)
[2018-03-23] MEDS: APIXABAN 5 MG TABLET PO (20:52)
[2018-03-23] MEDS: SPIRONOLACTONE 25 MG TAB PO (20:52)
[2018-03-24 00:58] LABS: CREATINE KINASE 60 IU/L (23-200)
[2018-03-24 01:10] LABS: CK INDEX 2.4
[2018-03-24 01:11] LABS: CK-MB 1.43 ng/ml (0.0-2.4)
[2018-03-24 06:56] LABS: ANION GAP 15 (8-16); BLOOD UREA NITROGEN 20 mg/dl (7-20); CALCIUM 9.2 mg/dl (8.4-10.2); CARBON DIOXIDE 28 mmol/L (21-31); CHLORIDE 103 mmol/L (97-110); GLUCOSE 121 mg/dl (70-220); MAGNESIUM 1.9 mg/dl (1.7-2.5); SODIUM 142 mmol/L (135-144)
[2018-03-24 07:00] LABS: CREATINE KINASE 53 IU/L (23-200)
[2018-03-24 07:05] LABS: CK INDEX 2.3; TROPONIN-I 0.072 ng/ml (0.000-0.120)
[2018-03-24 07:19] LABS: CK-MB 1.24 ng/ml (0.0-2.4)
[2018-03-24 07:54] LABS: HEMOGLOBIN A1C 7.2 % (0-5.9)
[2018-03-24] MEDS: APIXABAN 5 MG TABLET PO ×2 (08:28→20:42)
[2018-03-24] MEDS: ASPIRIN 81 MG TAB PO (08:28)
[2018-03-24] MEDS: FUROSEMIDE 40 MG INJ IV ×2 (08:29→17:57)
[2018-03-24] MEDS: LISINOPRIL 10 MG TAB PO ×2 (09:36→20:42)
[2018-03-24] MEDS: SPIRONOLACTONE 25 MG TAB PO (09:36)
[2018-03-24] MEDS ORDERED: morphine LIQ (10 MG/5 ML) CUP PO (15:00)
[2018-03-25] MEDS: FUROSEMIDE 40 MG INJ IV ×2 (05:23→17:00)
[2018-03-25 08:09] LABS: MAGNESIUM 1.7 mg/dl (1.7-2.5)
[2018-03-25 08:09] LABS: PHOSPHORUS 3.7 mg/dl (2.5-4.9)
[2018-03-25 08:16] LABS: ANION GAP 16 (8-16); BLOOD UREA NITROGEN 19 mg/dl (7-20); CALCIUM 8.9 mg/dl (8.4-10.2); CARBON DIOXIDE 29 mmol/L (21-31); CHLORIDE 98 mmol/L (97-110); CREATININE 1.07 mg/dl (0.61-1.24); GLUCOSE 155 mg/dl (70-220); POTASSIUM 3.4 mmol/L (3.5-5.1); SODIUM 140 mmol/L (135-144)
[2018-03-25] MEDS: SPIRONOLACTONE 25 MG TAB PO ×2 (08:29→17:05)
[2018-03-25] MEDS: APIXABAN 5 MG TABLET PO ×2 (08:29→20:32)
[2018-03-25] MEDS: ASPIRIN 81 MG TAB PO (08:29)
[2018-03-25] MEDS: LISINOPRIL 10 MG TAB PO ×2 (08:29→20:32)
[2018-03-25] MEDS: POTASSIUM CHLORIDE (SR) 20 MEQ TAB PO (10:57)
[2018-03-25] MEDS: ALBUTEROL/IPRATROPIUM (NEB) 3 ML AMP HHN (11:34)
[2018-03-25] MEDS: MAGNESIUM SULFATE 2 GM/50 ML 50 ML IVPB (11:41)
[2018-03-26] MEDS: SPIRONOLACTONE 25 MG TAB PO ×2 (05:46→17:56)
[2018-03-26] MEDS: FUROSEMIDE 40 MG INJ IV ×2 (05:46→05:49)
[2018-03-26] MEDS: LISINOPRIL 10 MG TAB PO (08:14)
[2018-03-26] MEDS: ASPIRIN 81 MG TAB PO (08:14)
[2018-03-26] MEDS: APIXABAN 5 MG TABLET PO (08:14)
[2018-03-26 08:16] LABS: PHOSPHORUS 3.8 mg/dl (2.5-4.9)
[2018-03-26 08:17] LABS: ANION GAP 17 (8-16); BLOOD UREA NITROGEN 22 mg/dl (7-20); CARBON DIOXIDE 26 mmol/L (21-31); CHLORIDE 100 mmol/L (97-110); CREATININE 1.16 mg/dl (0.61-1.24); GLUCOSE 166 mg/dl (70-220); SODIUM 139 mmol/L (135-144)
[2018-03-26] MEDS: FUROSEMIDE 40 MG TAB PO ×2 (11:49→17:08)
[2018-03-26 16:04] LABS: THYROID STIMULATING HORMONE 0.804 MIU/L (0.465-4.680)
[2018-03-26] MEDS ORDERED: LISINOPRIL 20 MG TAB PO (21:00)
== END 2018-03-26 18:56 | disposition home or self-care (01) | DRG 292 ==
LOC: MS3 18:23 → E/R 14:10 → TEL 03-24 15:35
DX: I11.0 Hypertensive heart disease with heart failure (principal); I16.1 Hypertensive emergency; I50.23 Acute on chronic systolic (congestive) heart failure; R06.03 Acute respiratory distress; I25.10 Atherosclerotic heart disease of native coronary artery without angina pectoris; I48.2 Chronic atrial fibrillation; Z82.49 Family history of ischemic heart disease and other diseases of the circulatory system; Z87.891 Personal history of nicotine dependence; Z91.19 Patient's noncompliance with other medical treatment and regimen; Z95.810 Presence of automatic (implantable) cardiac defibrillator
CPT/HCPCS: 36415; 71045; 74019; 80048; 80076; 81001; 82550; 82553; 83036; 83690; 83735; 83880; 84100; 84443; 84484; 85025; 93005; 94664; 96374; 96375; 99285-25

== ENCOUNTER 2018-04-06 13:17 | Emergency (ER) | payer MEDICARE, BC ==
[2018-04-06] MEDS: SOD CHLORIDE 0.9% 500 ML IV (13:53)
[2018-04-06 13:59] LABS: ADD MAN DIFF? NO
[2018-04-06 14:03] LABS: WHITE BLOOD COUNT 6.7 10^3/ul (4.8-10.8)
[2018-04-06 14:03] LABS: BASOPHIL # 0.1 10^3/ul (0.0-0.1); BASOPHILS % 0.9 % (0.0-2.0); EOSINOPHILS # 0.1 10^3/ul (0.0-0.5); HEMATOCRIT 48.5 % (42.0-52.0); HEMOGLOBIN 16.3 g/dl (14.0-18.0); LYMPHOCYTES # 1.1 10^3/ul (0.8-2.9); LYMPHOCYTES % 16.8 % (15.0-51.0); MEAN CORPUSCULAR HEMOGLOBIN 29.4 pg (29.0-33.0); MEAN CORPUSCULAR HGB CONC 33.6 g/dl (32.0-37.0); MEAN CORPUSCULAR VOLUME 87.5 fl (82.0-101.0); MEAN PLATELET VOLUME 9.9 fl (7.4-10.4); MONOCYTE # 0.5 10^3/ul (0.3-0.9); MONOCYTES % 7.9 % (0.0-11.0); NEUTROPHIL # 4.9 10^3/ul (1.6-7.5); NEUTROPHILS % 73.1 % (39.0-77.0); PLATELET COUNT 202 10^3/UL (140-415); RED BLOOD COUNT 5.54 10^6/ul (4.70-6.10)
[2018-04-06 14:14] LABS: INR 1.05; PARTIAL THROMBOPLASTIN TIME 33.1 Sec (25.0-35.0); PROTIME 13.8 Sec (11.9-14.9); PT RATIO 1.1
[2018-04-06 14:20] LABS: ANION GAP 20 (8-16); BLOOD UREA NITROGEN 14 mg/dl (7-20); CALCIUM 8.6 mg/dl (8.4-10.2); CARBON DIOXIDE 19 mmol/L (21-31); CHLORIDE 114 mmol/L (97-110); CREATININE 1.12 mg/dl (0.61-1.24); GLUCOSE 92 mg/dl (70-220); POTASSIUM 4.2 mmol/L (3.5-5.1); SODIUM 149 mmol/L (135-144)
[2018-04-06 14:31] LABS: TROPONIN-I 0.038 ng/ml (0.000-0.120)
[2018-04-06 16:51] LABS: TROPONIN-I 0.029 ng/ml (0.000-0.120)
== END 2018-04-06 18:51 | disposition home or self-care (01) ==
LOC: E/R 13:17
DX: F10.920 Alcohol use, unspecified with intoxication, uncomplicated (principal); I10 Essential (primary) hypertension; E11.9 Type 2 diabetes mellitus without complications; I50.9 Heart failure, unspecified; R55 Syncope and collapse
CPT/HCPCS: 36415; 70450; 71045; 80048; 80307; 82962; 84484; 85025; 85610; 85730; 93005; 99285-25

== ENCOUNTER 2018-05-18 20:40 | Observation (INO) | payer MEDICARE, BC ==
[2018-05-18 21:15] LABS: ADD MAN DIFF? NO
[2018-05-18 21:16] LABS: BASOPHIL # 0.1 10^3/ul (0.0-0.1); BASOPHILS % 1.3 % (0.0-2.0); EOSINOPHILS # 0.2 10^3/ul (0.0-0.5); EOSINOPHILS % 3.5 % (0.0-7.0); HEMATOCRIT 48.8 % (42.0-52.0); LYMPHOCYTES # 1.2 10^3/ul (0.8-2.9); LYMPHOCYTES % 22.5 % (15.0-51.0); MEAN CORPUSCULAR HEMOGLOBIN 28.8 pg (29.0-33.0); MEAN CORPUSCULAR HGB CONC 32.8 g/dl (32.0-37.0); MEAN CORPUSCULAR VOLUME 87.9 fl (82.0-101.0); MEAN PLATELET VOLUME 9.9 fl (7.4-10.4); MONOCYTE # 0.7 10^3/ul (0.3-0.9); MONOCYTES % 13.6 % (0.0-11.0); NEUTROPHIL # 3.1 10^3/ul (1.6-7.5); NEUTROPHILS % 58.5 % (39.0-77.0); PLATELET COUNT 211 10^3/UL (140-415); RED BLOOD COUNT 5.55 10^6/ul (4.70-6.10)
[2018-05-18 21:16] LABS: WHITE BLOOD COUNT 5.2 10^3/ul (4.8-10.8)
[2018-05-18] MEDS: ASPIRIN 325 MG TAB PO (21:17)
[2018-05-18 21:33] LABS: ANION GAP 13 (8-16); BLOOD UREA NITROGEN 14 mg/dl (7-20); CARBON DIOXIDE 25 mmol/L (21-31); CHLORIDE 105 mmol/L (97-110); CREATININE 0.91 mg/dl (0.61-1.24); GLUCOSE 146 mg/dl (70-220); POTASSIUM 4.1 mmol/L (3.5-5.1); SODIUM 139 mmol/L (135-144)
[2018-05-18 21:45] LABS: B-TYPE NATRIURETIC PEPTIDE 4230 PG/ML (0-125); TROPONIN-I 0.025 ng/ml (0.000-0.120)
[2018-05-18] MEDS: NITROGLYCERIN 0.2 MG/HR PATCH TRANSDERM (22:41)
[2018-05-19] MEDS: FUROSEMIDE 40 MG INJ IV ×3 (00:09→17:28)
[2018-05-19] MEDS ORDERED: NACL 0.9% 3 ML SYG IV (03:30)
[2018-05-19] MEDS ORDERED: ONDANSETRON 4 MG INJ IV (03:30)
[2018-05-19] MEDS ORDERED: DOCUSATE SODIUM 100 MG CAP PO (03:30)
[2018-05-19] MEDS ORDERED: ACETAMINOPHEN 325 MG TAB PO (03:30)
[2018-05-19] MEDS: hydrALAzine 20 MG INJ IV (05:46)
[2018-05-19 06:36] LABS: CREATINE KINASE 38 IU/L (23-200)
[2018-05-19 06:42] LABS: CK INDEX 2.6; CK-MB 0.98 ng/ml (0.0-2.4); TROPONIN-I 0.026 ng/ml (0.000-0.120)
[2018-05-19] MEDS: SPIRONOLACTONE 25 MG TAB PO (08:41)
[2018-05-19] MEDS: APIXABAN 5 MG TABLET PO (08:42)
[2018-05-19] MEDS: LISINOPRIL 20 MG TAB PO (08:45)
[2018-05-19 09:34] LABS: CREATINE KINASE 35 IU/L (23-200)
[2018-05-19 09:36] LABS: ANION GAP 14 (8-16); BLOOD UREA NITROGEN 17 mg/dl (7-20); CALCIUM 9.3 mg/dl (8.4-10.2); CARBON DIOXIDE 26 mmol/L (21-31); CHLORIDE 104 mmol/L (97-110); CREATININE 0.98 mg/dl (0.61-1.24); GLUCOSE 176 mg/dl (70-220); MAGNESIUM 1.7 mg/dl (1.7-2.5); POTASSIUM 4.4 mmol/L (3.5-5.1); SODIUM 140 mmol/L (135-144)
[2018-05-19 09:42] LABS: CK INDEX 2.5; CK-MB 0.89 ng/ml (0.0-2.4); TROPONIN-I 0.028 ng/ml (0.000-0.120)
[2018-05-19] MEDS: MAGNESIUM SULFATE 2 GM/50 ML 50 ML IVPB (15:03)
== END 2018-05-19 17:50 | disposition left against medical advice (07) ==
LOC: E/R 20:40 → TEL 05-19 02:51
DX: I50.20 Unspecified systolic (congestive) heart failure (principal); I42.9 Cardiomyopathy, unspecified; I48.2 Chronic atrial fibrillation; I10 Essential (primary) hypertension
CPT/HCPCS: 36415; 71045; 80048; 82550; 82553; 83735; 83880; 84484; 85025; 93005; 96374; 99291-25; G0378

== ENCOUNTER 2018-07-21 12:24 | Inpatient (IN) | payer MEDICARE, BC ==
[2018-07-21 13:09] LABS: ADD MAN DIFF? NO
[2018-07-21 13:13] LABS: BASOPHILS % 0.6 % (0.0-2.0); EOSINOPHILS # 0.1 10^3/ul (0.0-0.5); EOSINOPHILS % 1.8 % (0.0-7.0); HEMATOCRIT 50.8 % (42.0-52.0); HEMOGLOBIN 16.5 g/dl (14.0-18.0); LYMPHOCYTES # 1.1 10^3/ul (0.8-2.9); LYMPHOCYTES % 21.7 % (15.0-51.0); MEAN CORPUSCULAR HEMOGLOBIN 28.4 pg (29.0-33.0); MEAN CORPUSCULAR HGB CONC 32.5 g/dl (32.0-37.0); MEAN CORPUSCULAR VOLUME 87.4 fl (82.0-101.0); MEAN PLATELET VOLUME 9.9 fl (7.4-10.4); MONOCYTE # 0.6 10^3/ul (0.3-0.9); MONOCYTES % 12.4 % (0.0-11.0); NEUTROPHIL # 3.2 10^3/ul (1.6-7.5); NEUTROPHILS % 63.3 % (39.0-77.0); PLATELET COUNT 182 10^3/UL (140-415); RED BLOOD COUNT 5.81 10^6/ul (4.70-6.10); RED CELL DISTRIBUTION WIDTH 18.2 % (11.5-14.5)
[2018-07-21 13:29] LABS: ANION GAP 11 (5-13); BLOOD UREA NITROGEN 12 mg/dl (7-20); CARBON DIOXIDE 22 mmol/L (21-31); CHLORIDE 108 mmol/L (97-110); Estimated GFR > 60 mL/min (>60); GLUCOSE 146 mg/dl (70-220); POTASSIUM 4.7 mmol/L (3.5-5.1); SODIUM 141 mmol/L (135-144)
[2018-07-21] MEDS: NITROGLYCERIN 2% 1 GM OINT PKT TD (13:53)
[2018-07-21] MEDS: ASPIRIN 81 MG TAB PO (13:54)
[2018-07-21] MEDS: NITROGLYCERIN (SL) 0.4 MG TAB SL (13:54)
[2018-07-21] MEDS: FUROSEMIDE 40 MG INJ IV ×2 (13:54→19:01)
[2018-07-21] MEDS ORDERED: ACETAMINOPHEN 325 MG TAB PO (15:00)
[2018-07-21 15:11] LABS: B-TYPE NATRIURETIC PEPTIDE 4240 PG/ML (0-125)
[2018-07-21] MEDS ORDERED: NACL 0.9% 3 ML SYG IV (15:30)
[2018-07-21] MEDS: hydrALAzine 20 MG INJ IV (17:11)
[2018-07-21] MEDS: ONDANSETRON 4 MG INJ IV ×2 (17:15→17:16)
[2018-07-21 19:02] LABS: CREATINE KINASE 82 IU/L (23-200)
[2018-07-21 19:16] LABS: CK INDEX 2.2; CK-MB 1.78 ng/ml (0.0-2.4); TROPONIN-I 0.036 ng/ml (0.000-0.120)
[2018-07-21 19:21] LABS: FREE T4 (FREE THYROXINE) 0.99 ng/dl (0.78-2.44)
[2018-07-21 19:41] LABS: B-TYPE NATRIURETIC PEPTIDE 5150 PG/ML (0-125)
[2018-07-21 19:49] LABS: THYROID STIMULATING HORMONE 0.807 MIU/L (0.465-4.680)
[2018-07-21] MEDS: SPIRONOLACTONE 25 MG TAB PO (20:59)
[2018-07-21] MEDS: APIXABAN 5 MG TABLET PO (20:59)
[2018-07-21] MEDS: LISINOPRIL 20 MG TAB PO (20:59)
[2018-07-21] MEDS: TAMSULOSIN (SR) 0.4 MG CAP PO (20:59)
[2018-07-22 01:41] LABS: CREATINE KINASE 58 IU/L (23-200)
[2018-07-22 01:54] LABS: CK INDEX 2.8; CK-MB 1.62 ng/ml (0.0-2.4)
[2018-07-22 07:06] LABS: ADD MAN DIFF? NO
[2018-07-22 07:13] LABS: BASOPHILS % 0.6 % (0.0-2.0); EOSINOPHILS # 0.1 10^3/ul (0.0-0.5); EOSINOPHILS % 0.9 % (0.0-7.0); HEMOGLOBIN 15.3 g/dl (14.0-18.0); LYMPHOCYTES # 0.7 10^3/ul (0.8-2.9); LYMPHOCYTES % 11.2 % (15.0-51.0); MEAN CORPUSCULAR HEMOGLOBIN 28.3 pg (29.0-33.0); MEAN CORPUSCULAR HGB CONC 32.6 g/dl (32.0-37.0); MEAN CORPUSCULAR VOLUME 86.9 fl (82.0-101.0); MEAN PLATELET VOLUME 10.9 fl (7.4-10.4); MONOCYTE # 0.9 10^3/ul (0.3-0.9); MONOCYTES % 13.5 % (0.0-11.0); NEUTROPHIL # 4.8 10^3/ul (1.6-7.5); NEUTROPHILS % 73.5 % (39.0-77.0); PLATELET COUNT 171 10^3/UL (140-415); RED BLOOD COUNT 5.41 10^6/ul (4.70-6.10)
[2018-07-22 07:13] LABS: WHITE BLOOD COUNT 6.5 10^3/ul (4.8-10.8)
[2018-07-22 07:39] LABS: ANION GAP 9 (5-13); BLOOD UREA NITROGEN 18 mg/dl (7-20); CALCIUM 8.5 mg/dl (8.4-10.2); CARBON DIOXIDE 25 mmol/L (21-31); CHLORIDE 105 mmol/L (97-110); CREATININE 0.99 mg/dl (0.61-1.24); Estimated GFR > 60 mL/min (>60); GLUCOSE 148 mg/dl (70-220); POTASSIUM 4.1 mmol/L (3.5-5.1); SODIUM 139 mmol/L (135-144)
[2018-07-22 07:40] LABS: CHOL/HDL RATIO 3.6 RATIO; HDL CHOLESTEROL 48 mg/dl (30-78); LDL CHOLESTEROL,CALCULATED 109 mg/dl; TRIGLYCERIDES 99 mg/dl (0-149)
[2018-07-22 07:40] LABS: CHOLESTEROL 177 mg/dl (100-200)
[2018-07-22] MEDS: SPIRONOLACTONE 25 MG TAB PO ×2 (09:02→20:59)
[2018-07-22] MEDS: FUROSEMIDE 40 MG INJ IV ×2 (09:03→18:24)
[2018-07-22] MEDS: LISINOPRIL 20 MG TAB PO ×2 (09:03→21:00)
[2018-07-22] MEDS: APIXABAN 5 MG TABLET PO ×2 (09:04→21:00)
[2018-07-22] MEDS: TAMSULOSIN (SR) 0.4 MG CAP PO (21:00)
[2018-07-23] MEDS: FUROSEMIDE 40 MG INJ IV ×2 (05:54→18:11)
[2018-07-23 07:50] LABS: ADD MAN DIFF? NO
[2018-07-23 07:54] LABS: WHITE BLOOD COUNT 5.9 10^3/ul (4.8-10.8)
[2018-07-23 07:54] LABS: BASOPHILS % 0.5 % (0.0-2.0); EOSINOPHILS # 0.1 10^3/ul (0.0-0.5); EOSINOPHILS % 1.9 % (0.0-7.0); HEMOGLOBIN 15.5 g/dl (14.0-18.0); LYMPHOCYTES # 0.8 10^3/ul (0.8-2.9); LYMPHOCYTES % 13.1 % (15.0-51.0); MEAN CORPUSCULAR HEMOGLOBIN 28.3 pg (29.0-33.0); MEAN CORPUSCULAR HGB CONC 32.3 g/dl (32.0-37.0); MEAN CORPUSCULAR VOLUME 87.8 fl (82.0-101.0); MEAN PLATELET VOLUME 10.3 fl (7.4-10.4); MONOCYTE # 0.7 10^3/ul (0.3-0.9); MONOCYTES % 11.9 % (0.0-11.0); NEUTROPHIL # 4.2 10^3/ul (1.6-7.5); NEUTROPHILS % 72.1 % (39.0-77.0); PLATELET COUNT 159 10^3/UL (140-415); RED BLOOD COUNT 5.47 10^6/ul (4.70-6.10); RED CELL DISTRIBUTION WIDTH 17.1 % (11.5-14.5)
[2018-07-23 08:15] LABS: ANION GAP 9 (5-13); BLOOD UREA NITROGEN 21 mg/dl (7-20); CALCIUM 8.6 mg/dl (8.4-10.2); CARBON DIOXIDE 29 mmol/L (21-31); CHLORIDE 100 mmol/L (97-110); CREATININE 1.18 mg/dl (0.61-1.24); Estimated GFR > 60 mL/min (>60); GLUCOSE 162 mg/dl (70-220); POTASSIUM 3.6 mmol/L (3.5-5.1); SODIUM 138 mmol/L (135-144)
[2018-07-23 08:27] LABS: MAGNESIUM 1.7 mg/dl (1.7-2.5)
[2018-07-23] MEDS: APIXABAN 5 MG TABLET PO ×2 (08:32→20:40)
[2018-07-23] MEDS: SPIRONOLACTONE 25 MG TAB PO ×2 (08:34→20:40)
[2018-07-23] MEDS: LISINOPRIL 20 MG TAB PO ×2 (08:34→20:40)
[2018-07-23] MEDS: POTASSIUM CHLORIDE (SR) 20 MEQ TAB PO (09:33)
[2018-07-23] MEDS: MAGNESIUM SULFATE 2 GM/50 ML 50 ML IVPB (09:33)
[2018-07-23] MEDS: MAGNESIUM OXIDE 400 MG TAB PO (11:00)
[2018-07-23] MEDS: ALBUTEROL 0.083% (NEB) 2.5 MG/3 ML AMP HHN (16:08)
[2018-07-23] MEDS: hydrALAzine 20 MG INJ IV (20:39)
[2018-07-23] MEDS: TAMSULOSIN (SR) 0.4 MG CAP PO (20:40)
[2018-07-23] MEDS: ACETAMINOPHEN 325 MG TAB PO (20:40)
[2018-07-24] MEDS: FUROSEMIDE 40 MG INJ IV (06:00)
[2018-07-24 06:53] LABS: ADD MAN DIFF? NO
[2018-07-24 06:58] LABS: WHITE BLOOD COUNT 5.3 10^3/ul (4.8-10.8)
[2018-07-24 06:58] LABS: BASOPHILS % 0.7 % (0.0-2.0); EOSINOPHILS # 0.1 10^3/ul (0.0-0.5); EOSINOPHILS % 2.4 % (0.0-7.0); HEMATOCRIT 47.5 % (42.0-52.0); HEMOGLOBIN 15.4 g/dl (14.0-18.0); LYMPHOCYTES # 0.7 10^3/ul (0.8-2.9); LYMPHOCYTES % 13.9 % (15.0-51.0); MEAN CORPUSCULAR HEMOGLOBIN 28.5 pg (29.0-33.0); MEAN CORPUSCULAR HGB CONC 32.4 g/dl (32.0-37.0); MEAN PLATELET VOLUME 10.5 fl (7.4-10.4); MONOCYTE # 0.7 10^3/ul (0.3-0.9); MONOCYTES % 12.9 % (0.0-11.0); NEUTROPHIL # 3.7 10^3/ul (1.6-7.5); NEUTROPHILS % 69.7 % (39.0-77.0); PLATELET COUNT 170 10^3/UL (140-415); RED CELL DISTRIBUTION WIDTH 17.8 % (11.5-14.5)
[2018-07-24 07:12] LABS: MAGNESIUM 1.9 mg/dl (1.7-2.5)
[2018-07-24 07:13] LABS: ANION GAP 9 (5-13); BLOOD UREA NITROGEN 23 mg/dl (7-20); CALCIUM 8.9 mg/dl (8.4-10.2); CARBON DIOXIDE 29 mmol/L (21-31); CHLORIDE 103 mmol/L (97-110); CREATININE 1.21 mg/dl (0.61-1.24); Estimated GFR 60 mL/min (>60); GLUCOSE 171 mg/dl (70-220); POTASSIUM 3.8 mmol/L (3.5-5.1); SODIUM 141 mmol/L (135-144)
[2018-07-24] MEDS: SPIRONOLACTONE 25 MG TAB PO (08:14)
[2018-07-24] MEDS: LISINOPRIL 20 MG TAB PO (08:14)
[2018-07-24] MEDS: APIXABAN 5 MG TABLET PO (14:50)
== END 2018-07-24 15:30 | disposition home health service (06) | DRG 292 ==
LOC: E/R 12:24 → TEL 14:38
DX: I11.0 Hypertensive heart disease with heart failure (principal); I50.23 Acute on chronic systolic (congestive) heart failure; I16.1 Hypertensive emergency; I48.91 Unspecified atrial fibrillation; N40.0 Benign prostatic hyperplasia without lower urinary tract symptoms; I42.9 Cardiomyopathy, unspecified; Z91.14 Patient's other noncompliance with medication regimen; Z87.891 Personal history of nicotine dependence
CPT/HCPCS: 36415; 71045; 80048; 80061; 82550; 82553; 83735; 83880; 84439; 84443; 84484; 85025; 93005; 94664; 96374; 99291-25; G0378

== ENCOUNTER 2018-09-01 01:37 | Inpatient (IN) | payer MEDICARE, BC ==
[2018-09-01] MEDS: ASPIRIN 81 MG TAB PO (01:57)
[2018-09-01 02:11] LABS: ADD MAN DIFF? NO
[2018-09-01] MEDS: FUROSEMIDE 40 MG INJ IV ×2 (02:12→07:13)
[2018-09-01] MEDS: ONDANSETRON 4 MG INJ IV (02:12)
[2018-09-01] MEDS: morphine SULFATE/PF (2 MG/2 ML) SYG IV (02:13)
[2018-09-01] MEDS: NITROGLYCERIN 2% 1 GM OINT PKT TD (02:13)
[2018-09-01 02:35] LABS: ALANINE AMINOTRANSFERASE 14 IU/L (13-69); ALBUMIN 4.3 g/dl (3.3-4.9); ALBUMIN/GLOBULIN RATIO 1.22; ALKALINE PHOSPHATASE 130 IU/L (42-121); ANION GAP 14 (5-13); ASPARTATE AMINO TRANSFERASE 31 IU/L (15-46); BILIRUBIN,INDIRECT 0.7 mg/dl (0-1.1); BILIRUBIN,TOTAL 0.7 mg/dl (0.2-1.3); BLOOD UREA NITROGEN 14 mg/dl (7-20); CALCIUM 9.3 mg/dl (8.4-10.2); CARBON DIOXIDE 22 mmol/L (21-31); CHLORIDE 110 mmol/L (97-110); CREATININE 0.87 mg/dl (0.61-1.24); Estimated GFR > 60 mL/min (>60); GLUCOSE 164 mg/dl (70-220); POTASSIUM 4.4 mmol/L (3.5-5.1); SODIUM 146 mmol/L (135-144); TOTAL PROTEIN 7.8 g/dl (6.1-8.1)
[2018-09-01 02:46] LABS: B-TYPE NATRIURETIC PEPTIDE 6030 PG/ML (0-125); TROPONIN-I 0.049 ng/ml (0.000-0.120)
[2018-09-01 03:21] LABS: BASOPHIL # 0.1 10^3/ul (0.0-0.1); BASOPHILS % 1.4 % (0.0-2.0); EOSINOPHILS # 0.2 10^3/ul (0.0-0.5); EOSINOPHILS % 3.3 % (0.0-7.0); HEMATOCRIT 51.3 % (42.0-52.0); HEMOGLOBIN 16.9 g/dl (14.0-18.0); LYMPHOCYTES # 0.9 10^3/ul (0.8-2.9); LYMPHOCYTES % 17.5 % (15.0-51.0); MEAN CORPUSCULAR HEMOGLOBIN 29.4 pg (29.0-33.0); MEAN CORPUSCULAR HGB CONC 32.9 g/dl (32.0-37.0); MEAN CORPUSCULAR VOLUME 89.4 fl (82.0-101.0); MEAN PLATELET VOLUME 10.5 fl (7.4-10.4); MONOCYTE # 0.6 10^3/ul (0.3-0.9); NEUTROPHIL # 3.2 10^3/ul (1.6-7.5); NEUTROPHILS % 64.6 % (39.0-77.0); PLATELET COUNT 211 10^3/UL (140-415); RED BLOOD COUNT 5.74 10^6/ul (4.70-6.10); RED CELL DISTRIBUTION WIDTH 18.3 % (11.5-14.5)
[2018-09-01 03:21] LABS: WHITE BLOOD COUNT 4.9 10^3/ul (4.8-10.8)
[2018-09-01] MEDS ORDERED: NITROGLYCERIN (SL) 0.4 MG TAB SL (07:00)
[2018-09-01] MEDS ORDERED: morphine 2 MG INJ IV (07:00)
[2018-09-01] MEDS ORDERED: NACL 0.9% 3 ML SYG IV (07:00)
[2018-09-01] MEDS ORDERED: BISACODYL 10 MG SUPP PR (07:00)
[2018-09-01] MEDS ORDERED: ONDANSETRON 4 MG INJ IV (07:00)
[2018-09-01] MEDS ORDERED: MAGNESIUM HYDROXIDE 30ML CUP PO (07:00)
[2018-09-01] MEDS: FAMOTIDINE 20 MG TAB PO ×2 (09:10→20:45)
[2018-09-01] MEDS: SPIRONOLACTONE 25 MG TAB PO ×2 (09:10→20:45)
[2018-09-01] MEDS: APIXABAN 5 MG TABLET PO ×2 (09:10→20:45)
[2018-09-01] MEDS: LISINOPRIL 20 MG TAB PO ×2 (09:11→20:44)
[2018-09-01] MEDS: DEXTROSE 5% IV (15:45)
[2018-09-01] MEDS: BUMETANIDE IV (15:45)
[2018-09-01] MEDS ORDERED: FUROSEMIDE 40 MG INJ IV (18:00)
[2018-09-01 19:03] LABS: CREATINE KINASE 32 IU/L (23-200)
[2018-09-01 19:16] LABS: CK INDEX 2.8; CK-MB 0.88 ng/ml (0.0-2.4); TROPONIN-I 0.048 ng/ml (0.000-0.120)
[2018-09-01] MEDS: hydrALAzine 20 MG INJ IV (19:46)
[2018-09-01] MEDS: TAMSULOSIN (SR) 0.4 MG CAP PO (20:45)
[2018-09-02 01:32] LABS: CREATINE KINASE 25 IU/L (23-200)
[2018-09-02 02:42] LABS: CK INDEX 2.8; TROPONIN-I 0.045 ng/ml (0.000-0.120)
[2018-09-02 07:21] LABS: ADD MAN DIFF? NO
[2018-09-02 07:27] LABS: BASOPHILS % 0.8 % (0.0-2.0); EOSINOPHILS # 0.1 10^3/ul (0.0-0.5); EOSINOPHILS % 2.6 % (0.0-7.0); HEMATOCRIT 48.2 % (42.0-52.0); HEMOGLOBIN 15.5 g/dl (14.0-18.0); LYMPHOCYTES # 0.8 10^3/ul (0.8-2.9); LYMPHOCYTES % 16.3 % (15.0-51.0); MEAN CORPUSCULAR HEMOGLOBIN 29.2 pg (29.0-33.0); MEAN CORPUSCULAR HGB CONC 32.2 g/dl (32.0-37.0); MEAN CORPUSCULAR VOLUME 90.9 fl (82.0-101.0); MONOCYTE # 0.8 10^3/ul (0.3-0.9); MONOCYTES % 15.1 % (0.0-11.0); NEUTROPHIL # 3.2 10^3/ul (1.6-7.5); NEUTROPHILS % 64.8 % (39.0-77.0); PLATELET COUNT 189 10^3/UL (140-415); RED CELL DISTRIBUTION WIDTH 17.5 % (11.5-14.5)
[2018-09-02 07:50] LABS: CREATINE KINASE 21 IU/L (23-200)
[2018-09-02 07:52] LABS: ALANINE AMINOTRANSFERASE 17 IU/L (13-69); ALBUMIN 3.3 g/dl (3.3-4.9); ALBUMIN/GLOBULIN RATIO 1.13; ALKALINE PHOSPHATASE 112 IU/L (42-121); ANION GAP 10 (5-13); ASPARTATE AMINO TRANSFERASE 23 IU/L (15-46); BILIRUBIN,INDIRECT 1.1 mg/dl (0-1.1); BILIRUBIN,TOTAL 1.1 mg/dl (0.2-1.3); BLOOD UREA NITROGEN 21 mg/dl (7-20); CALCIUM 8.9 mg/dl (8.4-10.2); CARBON DIOXIDE 27 mmol/L (21-31); CHLORIDE 105 mmol/L (97-110); CREATININE 1.07 mg/dl (0.61-1.24); Estimated GFR > 60 mL/min (>60); GLUCOSE 139 mg/dl (70-220); MAGNESIUM 1.8 mg/dl (1.7-2.5); POTASSIUM 3.8 mmol/L (3.5-5.1); SODIUM 142 mmol/L (135-144); TOTAL PROTEIN 6.2 g/dl (6.1-8.1)
[2018-09-02 07:53] LABS: PHOSPHORUS 3.8 mg/dl (2.5-4.9)
[2018-09-02 08:01] LABS: CHOL/HDL RATIO 2.9 RATIO; HDL CHOLESTEROL 45 mg/dl (30-78); LDL CHOLESTEROL,CALCULATED 71 mg/dl; TRIGLYCERIDES 86 mg/dl (0-149)
[2018-09-02 08:01] LABS: CHOLESTEROL 133 mg/dl (100-200)
[2018-09-02 08:02] LABS: CK INDEX 2.8; CK-MB 0.58 ng/ml (0.0-2.4); TROPONIN-I 0.048 ng/ml (0.000-0.120)
[2018-09-02] MEDS: APIXABAN 5 MG TABLET PO ×2 (08:51→21:52)
[2018-09-02] MEDS: FAMOTIDINE 20 MG TAB PO ×2 (08:51→21:52)
[2018-09-02] MEDS: SPIRONOLACTONE 25 MG TAB PO ×2 (08:51→21:52)
[2018-09-02] MEDS: LISINOPRIL 20 MG TAB PO ×2 (08:52→21:51)
[2018-09-02] MEDS: FUROSEMIDE 40 MG INJ IV ×2 (11:37→18:22)
[2018-09-02] MEDS: TAMSULOSIN (SR) 0.4 MG CAP PO (21:51)
[2018-09-03] MEDS: FUROSEMIDE 40 MG INJ IV ×3 (05:47→22:18)
[2018-09-03] MEDS: SPIRONOLACTONE 25 MG TAB PO ×2 (08:38→20:17)
[2018-09-03] MEDS: APIXABAN 5 MG TABLET PO ×2 (08:38→20:17)
[2018-09-03] MEDS: DOCUSATE SODIUM 100 MG CAP PO (08:38)
[2018-09-03] MEDS: LISINOPRIL 20 MG TAB PO ×2 (08:38→20:18)
[2018-09-03] MEDS: FAMOTIDINE 20 MG TAB PO ×2 (08:38→20:17)
[2018-09-03] MEDS ORDERED: FUROSEMIDE 40 MG INJ IV (10:00)
[2018-09-03 10:04] LABS: ADD MAN DIFF? NO
[2018-09-03 10:08] LABS: WHITE BLOOD COUNT 4.6 10^3/ul (4.8-10.8)
[2018-09-03 10:08] LABS: BASOPHILS % 0.9 % (0.0-2.0); EOSINOPHILS # 0.1 10^3/ul (0.0-0.5); EOSINOPHILS % 1.8 % (0.0-7.0); HEMATOCRIT 49.1 % (42.0-52.0); HEMOGLOBIN 15.8 g/dl (14.0-18.0); LYMPHOCYTES # 0.6 10^3/ul (0.8-2.9); LYMPHOCYTES % 14.1 % (15.0-51.0); MEAN CORPUSCULAR HEMOGLOBIN 29.3 pg (29.0-33.0); MEAN CORPUSCULAR HGB CONC 32.2 g/dl (32.0-37.0); MEAN CORPUSCULAR VOLUME 90.9 fl (82.0-101.0); MEAN PLATELET VOLUME 11.1 fl (7.4-10.4); MONOCYTE # 0.6 10^3/ul (0.3-0.9); MONOCYTES % 12.1 % (0.0-11.0); NEUTROPHIL # 3.2 10^3/ul (1.6-7.5); NEUTROPHILS % 70.9 % (39.0-77.0); PLATELET COUNT 193 10^3/UL (140-415); RED CELL DISTRIBUTION WIDTH 17.6 % (11.5-14.5)
[2018-09-03 10:25] LABS: MAGNESIUM 1.7 mg/dl (1.7-2.5)
[2018-09-03 10:25] LABS: PHOSPHORUS 3.5 mg/dl (2.5-4.9)
[2018-09-03 10:26] LABS: ALANINE AMINOTRANSFERASE 14 IU/L (13-69); ALBUMIN 3.6 g/dl (3.3-4.9); ALBUMIN/GLOBULIN RATIO 1.38; ALKALINE PHOSPHATASE 96 IU/L (42-121); ANION GAP 8 (5-13); ASPARTATE AMINO TRANSFERASE 19 IU/L (15-46); BILIRUBIN,INDIRECT 1.2 mg/dl (0-1.1); BILIRUBIN,TOTAL 1.2 mg/dl (0.2-1.3); BLOOD UREA NITROGEN 18 mg/dl (7-20); CARBON DIOXIDE 32 mmol/L (21-31); CHLORIDE 99 mmol/L (97-110); CREATININE 1.04 mg/dl (0.61-1.24); Estimated GFR > 60 mL/min (>60); GLUCOSE 207 mg/dl (70-220); POTASSIUM 3.8 mmol/L (3.5-5.1); SODIUM 139 mmol/L (135-144); TOTAL PROTEIN 6.2 g/dl (6.1-8.1)
[2018-09-03] MEDS: TAMSULOSIN (SR) 0.4 MG CAP PO (20:17)
[2018-09-04] MEDS: FUROSEMIDE 40 MG INJ IV ×3 (06:18→21:43)
[2018-09-04 07:01] LABS: ADD MAN DIFF? NO
[2018-09-04 07:07] LABS: WHITE BLOOD COUNT 4.4 10^3/ul (4.8-10.8)
[2018-09-04 07:07] LABS: BASOPHILS % 0.9 % (0.0-2.0); EOSINOPHILS # 0.1 10^3/ul (0.0-0.5); EOSINOPHILS % 2.7 % (0.0-7.0); HEMATOCRIT 49.1 % (42.0-52.0); HEMOGLOBIN 16.2 g/dl (14.0-18.0); LYMPHOCYTES # 0.8 10^3/ul (0.8-2.9); LYMPHOCYTES % 18.3 % (15.0-51.0); MEAN CORPUSCULAR HEMOGLOBIN 29.6 pg (29.0-33.0); MEAN CORPUSCULAR VOLUME 89.8 fl (82.0-101.0); MEAN PLATELET VOLUME 10.6 fl (7.4-10.4); MONOCYTE # 0.8 10^3/ul (0.3-0.9); MONOCYTES % 16.9 % (0.0-11.0); NEUTROPHIL # 2.7 10^3/ul (1.6-7.5); PLATELET COUNT 193 10^3/UL (140-415); RED BLOOD COUNT 5.47 10^6/ul (4.70-6.10); RED CELL DISTRIBUTION WIDTH 17.2 % (11.5-14.5)
[2018-09-04 07:30] LABS: ANION GAP 8 (5-13); BLOOD UREA NITROGEN 18 mg/dl (7-20); CALCIUM 9.1 mg/dl (8.4-10.2); CARBON DIOXIDE 30 mmol/L (21-31); CHLORIDE 102 mmol/L (97-110); CREATININE 1.01 mg/dl (0.61-1.24); Estimated GFR > 60 mL/min (>60); GLUCOSE 149 mg/dl (70-220); POTASSIUM 3.5 mmol/L (3.5-5.1); SODIUM 140 mmol/L (135-144)
[2018-09-04 07:32] LABS: MAGNESIUM 1.7 mg/dl (1.7-2.5)
[2018-09-04 07:32] LABS: PHOSPHORUS 3.8 mg/dl (2.5-4.9)
[2018-09-04] MEDS: LISINOPRIL 20 MG TAB PO ×2 (09:40→21:04)
[2018-09-04] MEDS: APIXABAN 5 MG TABLET PO ×2 (09:40→21:04)
[2018-09-04] MEDS: FAMOTIDINE 20 MG TAB PO ×2 (09:41→21:03)
[2018-09-04] MEDS: SPIRONOLACTONE 25 MG TAB PO (09:41)
[2018-09-04] MEDS: TAMSULOSIN (SR) 0.4 MG CAP PO (21:03)
[2018-09-05] MEDS: FUROSEMIDE 40 MG INJ IV ×4 (05:31→21:15)
[2018-09-05 07:26] LABS: ADD MAN DIFF? NO
[2018-09-05 07:31] LABS: BASOPHILS % 0.8 % (0.0-2.0); EOSINOPHILS # 0.1 10^3/ul (0.0-0.5); EOSINOPHILS % 2.4 % (0.0-7.0); HEMATOCRIT 50.9 % (42.0-52.0); HEMOGLOBIN 16.5 g/dl (14.0-18.0); LYMPHOCYTES % 19.1 % (15.0-51.0); MEAN CORPUSCULAR HEMOGLOBIN 29.2 pg (29.0-33.0); MEAN CORPUSCULAR HGB CONC 32.4 g/dl (32.0-37.0); MEAN CORPUSCULAR VOLUME 90.1 fl (82.0-101.0); MEAN PLATELET VOLUME 11.1 fl (7.4-10.4); MONOCYTE # 0.8 10^3/ul (0.3-0.9); MONOCYTES % 15.1 % (0.0-11.0); NEUTROPHIL # 3.1 10^3/ul (1.6-7.5); NEUTROPHILS % 62.2 % (39.0-77.0); PLATELET COUNT 211 10^3/UL (140-415); RED BLOOD COUNT 5.65 10^6/ul (4.70-6.10); RED CELL DISTRIBUTION WIDTH 17.6 % (11.5-14.5)
[2018-09-05 08:13] LABS: ALANINE AMINOTRANSFERASE 18 IU/L (13-69); ALBUMIN 3.6 g/dl (3.3-4.9); ALKALINE PHOSPHATASE 120 IU/L (42-121); ANION GAP 8 (5-13); ASPARTATE AMINO TRANSFERASE 19 IU/L (15-46); BILIRUBIN,INDIRECT 0.8 mg/dl (0-1.1); BILIRUBIN,TOTAL 0.8 mg/dl (0.2-1.3); BLOOD UREA NITROGEN 25 mg/dl (7-20); CALCIUM 9.2 mg/dl (8.4-10.2); CARBON DIOXIDE 30 mmol/L (21-31); CHLORIDE 102 mmol/L (97-110); CREATININE 1.09 mg/dl (0.61-1.24); Estimated GFR > 60 mL/min (>60); GLUCOSE 166 mg/dl (70-220); POTASSIUM 3.5 mmol/L (3.5-5.1); SODIUM 140 mmol/L (135-144); TOTAL PROTEIN 6.6 g/dl (6.1-8.1)
[2018-09-05 08:30] LABS: MAGNESIUM 1.9 mg/dl (1.7-2.5)
[2018-09-05 08:30] LABS: PHOSPHORUS 4.1 mg/dl (2.5-4.9)
[2018-09-05] MEDS: APIXABAN 5 MG TABLET PO ×2 (10:48→20:10)
[2018-09-05] MEDS: FAMOTIDINE 20 MG TAB PO ×2 (10:48→20:10)
[2018-09-05] MEDS: LISINOPRIL 20 MG TAB PO ×2 (10:49→20:10)
[2018-09-05] MEDS: SPIRONOLACTONE 25 MG TAB PO (10:49)
[2018-09-05] MEDS: METOLAZONE 5 MG TAB PO (14:15)
[2018-09-05] MEDS: TAMSULOSIN (SR) 0.4 MG CAP PO (20:10)
[2018-09-06] MEDS: FUROSEMIDE 40 MG INJ IV (06:00)
[2018-09-06 07:17] LABS: ADD MAN DIFF? NO; BASOPHILS % 0.7 % (0.0-2.0); EOSINOPHILS # 0.1 10^3/ul (0.0-0.5); EOSINOPHILS % 2.2 % (0.0-7.0); HEMATOCRIT 53.2 % (42.0-52.0); HEMOGLOBIN 17.4 g/dl (14.0-18.0); LYMPHOCYTES # 0.8 10^3/ul (0.8-2.9); LYMPHOCYTES % 13.3 % (15.0-51.0); MEAN CORPUSCULAR HGB CONC 32.7 g/dl (32.0-37.0); MEAN CORPUSCULAR VOLUME 88.7 fl (82.0-101.0); MEAN PLATELET VOLUME 10.9 fl (7.4-10.4); MONOCYTE # 0.9 10^3/ul (0.3-0.9); NEUTROPHILS % 68.3 % (39.0-77.0); PLATELET COUNT 206 10^3/UL (140-415); RED CELL DISTRIBUTION WIDTH 17.7 % (11.5-14.5)
[2018-09-06 07:17] LABS: WHITE BLOOD COUNT 5.9 10^3/ul (4.8-10.8)
[2018-09-06 07:44] LABS: ANION GAP 12 (5-13); BLOOD UREA NITROGEN 33 mg/dl (7-20); CALCIUM 9.4 mg/dl (8.4-10.2); CARBON DIOXIDE 29 mmol/L (21-31); CHLORIDE 99 mmol/L (97-110); CREATININE 1.37 mg/dl (0.61-1.24); Estimated GFR 52 mL/min (>60); GLUCOSE 178 mg/dl (70-220); POTASSIUM 3.3 mmol/L (3.5-5.1); SODIUM 140 mmol/L (135-144)
[2018-09-06 07:58] LABS: PHOSPHORUS 4.5 mg/dl (2.5-4.9)
[2018-09-06 07:58] LABS: MAGNESIUM 1.9 mg/dl (1.7-2.5)
[2018-09-06] MEDS: FAMOTIDINE 20 MG TAB PO ×2 (08:57→20:36)
[2018-09-06] MEDS: APIXABAN 5 MG TABLET PO ×2 (08:58→23:46)
[2018-09-06] MEDS: SPIRONOLACTONE 25 MG TAB PO (08:58)
[2018-09-06] MEDS: METOLAZONE 5 MG TAB PO (08:59)
[2018-09-06] MEDS: LISINOPRIL 20 MG TAB PO ×2 (08:59→20:36)
[2018-09-06] MEDS: POTASSIUM CHLORIDE (SR) 20 MEQ TAB PO (11:22)
[2018-09-06] MEDS: FUROSEMIDE 40 MG TAB PO (13:40)
[2018-09-06] MEDS: ACETAMINOPHEN 325 MG TAB PO (15:49)
[2018-09-06] MEDS: FUROSEMIDE 40 MG TAB GTB (17:57)
[2018-09-06] MEDS: TAMSULOSIN (SR) 0.4 MG CAP PO (20:36)
[2018-09-07] MEDS ORDERED: FUROSEMIDE 40 MG INJ (00:37)
[2018-09-07] MEDS: FUROSEMIDE 40 MG INJ IV (00:48)
[2018-09-07] MEDS ORDERED: morphine 2 MG INJ (01:00)
[2018-09-07] MEDS: morphine 2 MG INJ IV (01:05)
[2018-09-07 01:26] LABS: AADO2 Arterial 479.2 mmHg (7.0-24.0); Allen Test ACCEPTAB; Arterial Base Excess 3.4 mmol/L (-3.0-3); Arterial Blood Gas Oxygen Sat 99.1 mmHG (95.0-98.0); Arterial COHb 0.3 % (0.0-3.0); Arterial Fraction of Oxyhgb 98.4 % (93.0-99.0); Arterial HCO3 27.8 mmol/L (22.0-26.0); Arterial MetHb 0.4 % (0.0-1.5); MODE MASK - NRB; Site Right Radial
[2018-09-07 02:10] LABS: ADD MAN DIFF? NO
[2018-09-07 02:14] LABS: WHITE BLOOD COUNT 7.9 10^3/ul (4.8-10.8)
[2018-09-07 02:14] LABS: BASOPHILS % 0.5 % (0.0-2.0); EOSINOPHILS # 0.2 10^3/ul (0.0-0.5); EOSINOPHILS % 1.9 % (0.0-7.0); HEMOGLOBIN 17.6 g/dl (14.0-18.0); LYMPHOCYTES # 0.9 10^3/ul (0.8-2.9); LYMPHOCYTES % 11.1 % (15.0-51.0); MEAN CORPUSCULAR HEMOGLOBIN 29.5 pg (29.0-33.0); MEAN CORPUSCULAR HGB CONC 33.2 g/dl (32.0-37.0); MEAN CORPUSCULAR VOLUME 88.9 fl (82.0-101.0); MEAN PLATELET VOLUME 10.6 fl (7.4-10.4); NEUTROPHIL # 5.8 10^3/ul (1.6-7.5); NEUTROPHILS % 73.2 % (39.0-77.0); PLATELET COUNT 214 10^3/UL (140-415); RED BLOOD COUNT 5.96 10^6/ul (4.70-6.10); RED CELL DISTRIBUTION WIDTH 17.9 % (11.5-14.5)
[2018-09-07] MEDS: morphine LIQ (10 MG/5 ML) CUP PO (02:19)
[2018-09-07 02:28] LABS: ALANINE AMINOTRANSFERASE 21 IU/L (13-69); ALBUMIN 3.8 g/dl (3.3-4.9); ALBUMIN/GLOBULIN RATIO 1.18; ALKALINE PHOSPHATASE 128 IU/L (42-121); ANION GAP 13 (5-13); ASPARTATE AMINO TRANSFERASE 24 IU/L (15-46); BLOOD UREA NITROGEN 47 mg/dl (7-20); CALCIUM 9.4 mg/dl (8.4-10.2); CARBON DIOXIDE 27 mmol/L (21-31); CHLORIDE 98 mmol/L (97-110); CREATINE KINASE 38 IU/L (23-200); Estimated GFR 38 mL/min (>60); GLUCOSE 225 mg/dl (70-220); POTASSIUM 3.7 mmol/L (3.5-5.1); SODIUM 138 mmol/L (135-144)
[2018-09-07 02:40] LABS: CK INDEX 1.4; CK-MB 0.53 ng/ml (0.0-2.4); TROPONIN-I 0.063 ng/ml (0.000-0.120)
[2018-09-07] MEDS ORDERED: ALBUMIN HUMAN 25% 100 ML (02:45)
[2018-09-07] MEDS: LORAZEPAM 2 MG INJ IV (02:48)
[2018-09-07] MEDS: ALBUMIN HUMAN 25% 100 ML IV ×2 (02:51→04:18)
[2018-09-07] MEDS: LEVALBUTEROL (NEB) 1.25 MG/0.5 ML AMP HHN (02:59)
[2018-09-07] MEDS: LIDOCAINE 5% PATCH TD (03:09)
[2018-09-07] MEDS: SOD CHLORIDE 0.9% 250 ML IV (03:09)
[2018-09-07] MEDS: FUROSEMIDE 40 MG TAB GTB ×2 (07:16→17:19)
[2018-09-07 07:38] LABS: ADD MAN DIFF? NO
[2018-09-07 07:41] LABS: BASOPHIL # 0.1 10^3/ul (0.0-0.1); BASOPHILS % 0.7 % (0.0-2.0); EOSINOPHILS # 0.1 10^3/ul (0.0-0.5); EOSINOPHILS % 1.3 % (0.0-7.0); HEMATOCRIT 48.9 % (42.0-52.0); HEMOGLOBIN 16.6 g/dl (14.0-18.0); LYMPHOCYTES # 0.9 10^3/ul (0.8-2.9); LYMPHOCYTES % 13.2 % (15.0-51.0); MEAN CORPUSCULAR HGB CONC 33.9 g/dl (32.0-37.0); MEAN CORPUSCULAR VOLUME 88.3 fl (82.0-101.0); MEAN PLATELET VOLUME 10.7 fl (7.4-10.4); MONOCYTE # 0.9 10^3/ul (0.3-0.9); MONOCYTES % 12.4 % (0.0-11.0); PLATELET COUNT 192 10^3/UL (140-415); RED BLOOD COUNT 5.54 10^6/ul (4.70-6.10); RED CELL DISTRIBUTION WIDTH 17.5 % (11.5-14.5)
[2018-09-07 07:59] LABS: CREATINE KINASE 29 IU/L (23-200)
[2018-09-07 08:04] LABS: PHOSPHORUS 5.3 mg/dl (2.5-4.9)
[2018-09-07 08:08] LABS: ALANINE AMINOTRANSFERASE 18 IU/L (13-69); ALBUMIN 4.1 g/dl (3.3-4.9); ALBUMIN/GLOBULIN RATIO 1.41; ALKALINE PHOSPHATASE 102 IU/L (42-121); ANION GAP 13 (5-13); ASPARTATE AMINO TRANSFERASE 20 IU/L (15-46); BILIRUBIN,INDIRECT 0.9 mg/dl (0-1.1); BILIRUBIN,TOTAL 0.9 mg/dl (0.2-1.3); BLOOD UREA NITROGEN 48 mg/dl (7-20); CALCIUM 9.2 mg/dl (8.4-10.2); CARBON DIOXIDE 29 mmol/L (21-31); CHLORIDE 97 mmol/L (97-110); CREATININE 1.84 mg/dl (0.61-1.24); Estimated GFR 37 mL/min (>60); GLUCOSE 195 mg/dl (70-220); SODIUM 139 mmol/L (135-144)
[2018-09-07 08:13] LABS: CK INDEX 1.5; CK-MB 0.44 ng/ml (0.0-2.4)
[2018-09-07 08:15] LABS: POTASSIUM 3.5 mmol/L (3.5-5.1)
[2018-09-07] MEDS: METOLAZONE 5 MG TAB PO (08:43)
[2018-09-07] MEDS: FAMOTIDINE 20 MG TAB PO ×2 (08:44→20:21)
[2018-09-07] MEDS: LISINOPRIL 20 MG TAB PO ×2 (08:44→20:21)
[2018-09-07] MEDS: SPIRONOLACTONE 25 MG TAB PO (08:48)
[2018-09-07] MEDS ORDERED: LACTULOSE 30ML CUP PO (09:00)
[2018-09-07 14:45] LABS: CREATINE KINASE 31 IU/L (23-200)
[2018-09-07 14:58] LABS: CK INDEX 1.5; CK-MB 0.47 ng/ml (0.0-2.4); TROPONIN-I 0.051 ng/ml (0.000-0.120)
[2018-09-07] MEDS: TAMSULOSIN (SR) 0.4 MG CAP PO (20:21)
[2018-09-08 05:19] LABS: ADD MAN DIFF? NO
[2018-09-08 05:27] LABS: BASOPHIL # 0.1 10^3/ul (0.0-0.1); BASOPHILS % 0.7 % (0.0-2.0); EOSINOPHILS # 0.2 10^3/ul (0.0-0.5); EOSINOPHILS % 2.5 % (0.0-7.0); HEMATOCRIT 50.9 % (42.0-52.0); HEMOGLOBIN 16.9 g/dl (14.0-18.0); LYMPHOCYTES % 12.5 % (15.0-51.0); MEAN CORPUSCULAR HEMOGLOBIN 29.2 pg (29.0-33.0); MEAN CORPUSCULAR HGB CONC 33.2 g/dl (32.0-37.0); MEAN CORPUSCULAR VOLUME 88.1 fl (82.0-101.0); MEAN PLATELET VOLUME 11.2 fl (7.4-10.4); MONOCYTE # 1.1 10^3/ul (0.3-0.9); MONOCYTES % 12.7 % (0.0-11.0); NEUTROPHIL # 5.9 10^3/ul (1.6-7.5); NEUTROPHILS % 71.2 % (39.0-77.0); PLATELET COUNT 216 10^3/UL (140-415); RED BLOOD COUNT 5.78 10^6/ul (4.70-6.10); RED CELL DISTRIBUTION WIDTH 16.8 % (11.5-14.5)
[2018-09-08 05:27] LABS: WHITE BLOOD COUNT 8.3 10^3/ul (4.8-10.8)
[2018-09-08 05:50] LABS: PHOSPHORUS 5.2 mg/dl (2.5-4.9)
[2018-09-08 06:17] LABS: ANION GAP 14 (5-13); BLOOD UREA NITROGEN 64 mg/dl (7-20); CALCIUM 9.2 mg/dl (8.4-10.2); CARBON DIOXIDE 26 mmol/L (21-31); CHLORIDE 97 mmol/L (97-110); CREATININE 1.82 mg/dl (0.61-1.24); Estimated GFR 37 mL/min (>60); GLUCOSE 204 mg/dl (70-220); SODIUM 137 mmol/L (135-144)
[2018-09-08 06:32] LABS: POTASSIUM 3.6 mmol/L (3.5-5.1)
[2018-09-08] MEDS: FAMOTIDINE 20 MG TAB PO ×2 (09:00→20:18)
[2018-09-08] MEDS: LISINOPRIL 20 MG TAB PO ×2 (09:01→20:18)
[2018-09-08] MEDS: SPIRONOLACTONE 25 MG TAB PO (09:01)
[2018-09-08] MEDS: FUROSEMIDE 40 MG TAB GTB (09:01)
[2018-09-08] MEDS: METOLAZONE 5 MG TAB PO (10:48)
[2018-09-08] MEDS: LEVALBUTEROL (NEB) 1.25 MG/0.5 ML AMP HHN (11:01)
[2018-09-08] MEDS: CEFAZOLIN 1 GM/50 ML (PMX) 50 ML IVPB ×2 (13:30→13:56)
[2018-09-08] MEDS: morphine LIQ (10 MG/5 ML) CUP PO (13:56)
[2018-09-08] MEDS: TAMSULOSIN (SR) 0.4 MG CAP PO (20:18)
[2018-09-09 06:31] LABS: ADD MAN DIFF? NO
[2018-09-09 06:39] LABS: WHITE BLOOD COUNT 6.3 10^3/ul (4.8-10.8)
[2018-09-09 06:39] LABS: BASOPHIL # 0.1 10^3/ul (0.0-0.1); EOSINOPHILS # 0.2 10^3/ul (0.0-0.5); EOSINOPHILS % 2.5 % (0.0-7.0); HEMOGLOBIN 16.6 g/dl (14.0-18.0); LYMPHOCYTES % 15.2 % (15.0-51.0); MEAN CORPUSCULAR HGB CONC 33.2 g/dl (32.0-37.0); MEAN CORPUSCULAR VOLUME 87.3 fl (82.0-101.0); MEAN PLATELET VOLUME 11.3 fl (7.4-10.4); MONOCYTE # 1.1 10^3/ul (0.3-0.9); MONOCYTES % 17.6 % (0.0-11.0); NEUTROPHILS % 63.2 % (39.0-77.0); PLATELET COUNT 202 10^3/UL (140-415); RED BLOOD COUNT 5.73 10^6/ul (4.70-6.10)
[2018-09-09 07:05] LABS: INR 1.12; PROTIME 14.6 Sec (11.9-14.9); PT RATIO 1.1
[2018-09-09 07:16] LABS: ANION GAP 12 (5-13); BLOOD UREA NITROGEN 73 mg/dl (7-20); CALCIUM 9.3 mg/dl (8.4-10.2); CARBON DIOXIDE 26 mmol/L (21-31); CHLORIDE 97 mmol/L (97-110); CREATININE 1.68 mg/dl (0.61-1.24); Estimated GFR 41 mL/min (>60); GLUCOSE 169 mg/dl (70-220); POTASSIUM 3.5 mmol/L (3.5-5.1); SODIUM 135 mmol/L (135-144)
[2018-09-09 07:53] LABS: PHOSPHORUS 4.6 mg/dl (2.5-4.9)
[2018-09-09 07:53] LABS: MAGNESIUM 2.3 mg/dl (1.7-2.5)
[2018-09-09] MEDS: SPIRONOLACTONE 25 MG TAB PO (09:00)
[2018-09-09] MEDS: LISINOPRIL 20 MG TAB PO ×2 (09:00→20:11)
[2018-09-09] MEDS ORDERED: LIDOCAINE 2% (MDV) 20 ML INJ (12:50)
[2018-09-09] MEDS ORDERED: BUPIVACAINE 0.5% (SDV) 30 ML INJ (12:50)
[2018-09-09] MEDS: POLYMYXIN/BACITRACIN 1L IRRIG IRR (13:00)
[2018-09-09] MEDS ORDERED: HEPARIN 1000 UNITS/NS (A-LINE) 1,000 ML (13:04)
[2018-09-09] MEDS ORDERED: IODIXANOL LOCM 50 ML BTL (13:04)
[2018-09-09] MEDS ORDERED: CEFAZOLIN 1 GM/50 ML (PMX) 100 ML IVPB (13:07)
[2018-09-09] MEDS ORDERED: MIDAZOLAM 1 MG/ML 2 ML INJ (13:36)
[2018-09-09] MEDS ORDERED: ETOMIDATE 20 MG INJ (13:36)
[2018-09-09] MEDS ORDERED: FENTAnyl 50 MCG/ML VIAL (13:37)
[2018-09-09] MEDS ORDERED: morphine LIQ (10 MG/5 ML) CUP PO (15:00)
[2018-09-09] MEDS ORDERED: morphine 2 MG INJ IV (15:00)
[2018-09-09] MEDS: METOLAZONE 5 MG TAB PO (15:41)
[2018-09-09] MEDS: FAMOTIDINE 20 MG TAB PO ×2 (15:41→20:11)
[2018-09-09] MEDS: FUROSEMIDE 40 MG TAB GTB (15:42)
[2018-09-09] MEDS: morphine 2 MG INJ IV ×2 (17:26→20:34)
[2018-09-09] MEDS: ACETAMINOPHEN 325 MG TAB PO (18:35)
[2018-09-09] MEDS: TAMSULOSIN (SR) 0.4 MG CAP PO (20:11)
[2018-09-09] MEDS: CEFAZOLIN 1 GM/50 ML (PMX) 50 ML IVPB (21:39)
[2018-09-09] MEDS ORDERED: CEFAZOLIN 1 GM/50 ML (PMX) 50 ML IVPB (22:00)
[2018-09-10] MEDS: CEFAZOLIN 1 GM/50 ML (PMX) 50 ML IVPB ×3 (05:50→21:16)
[2018-09-10] MEDS: morphine 2 MG INJ IV ×2 (05:50→23:25)
[2018-09-10 06:43] LABS: ADD MAN DIFF? NO
[2018-09-10 06:45] LABS: WHITE BLOOD COUNT 6.1 10^3/ul (4.8-10.8)
[2018-09-10 06:45] LABS: BASOPHIL # 0.1 10^3/ul (0.0-0.1); BASOPHILS % 0.8 % (0.0-2.0); EOSINOPHILS # 0.1 10^3/ul (0.0-0.5); EOSINOPHILS % 1.8 % (0.0-7.0); HEMATOCRIT 49.4 % (42.0-52.0); HEMOGLOBIN 16.6 g/dl (14.0-18.0); LYMPHOCYTES # 0.9 10^3/ul (0.8-2.9); LYMPHOCYTES % 14.4 % (15.0-51.0); MEAN CORPUSCULAR HEMOGLOBIN 29.6 pg (29.0-33.0); MEAN CORPUSCULAR HGB CONC 33.6 g/dl (32.0-37.0); MEAN CORPUSCULAR VOLUME 88.2 fl (82.0-101.0); MEAN PLATELET VOLUME 10.7 fl (7.4-10.4); MONOCYTE # 1.2 10^3/ul (0.3-0.9); MONOCYTES % 19.8 % (0.0-11.0); NEUTROPHIL # 3.8 10^3/ul (1.6-7.5); NEUTROPHILS % 62.7 % (39.0-77.0); PLATELET COUNT 180 10^3/UL (140-415); RED CELL DISTRIBUTION WIDTH 16.5 % (11.5-14.5)
[2018-09-10 07:26] LABS: ANION GAP 14 (5-13); BLOOD UREA NITROGEN 68 mg/dl (7-20); CALCIUM 9.1 mg/dl (8.4-10.2); CARBON DIOXIDE 27 mmol/L (21-31); CHLORIDE 97 mmol/L (97-110); CREATININE 1.38 mg/dl (0.61-1.24); Estimated GFR 51 mL/min (>60); GLUCOSE 212 mg/dl (70-220); POTASSIUM 3.3 mmol/L (3.5-5.1); SODIUM 138 mmol/L (135-144)
[2018-09-10 07:27] LABS: MAGNESIUM 2.3 mg/dl (1.7-2.5)
[2018-09-10] MEDS: LISINOPRIL 20 MG TAB PO ×2 (08:14→21:15)
[2018-09-10] MEDS: FAMOTIDINE 20 MG TAB PO ×2 (08:14→21:16)
[2018-09-10] MEDS: SPIRONOLACTONE 25 MG TAB PO (08:14)
[2018-09-10] MEDS: METOLAZONE 5 MG TAB PO (08:15)
[2018-09-10] MEDS: FUROSEMIDE 40 MG TAB GTB (08:15)
[2018-09-10] MEDS: LEVALBUTEROL (NEB) 1.25 MG/0.5 ML AMP HHN (08:30)
[2018-09-10] MEDS: POTASSIUM CHLORIDE (SR) 20 MEQ TAB PO (10:21)
[2018-09-10] MEDS: TAMSULOSIN (SR) 0.4 MG CAP PO (21:15)
[2018-09-11] MEDS: CEFAZOLIN 1 GM/50 ML (PMX) 50 ML IVPB ×3 (05:38→21:30)
[2018-09-11 06:51] LABS: ADD MAN DIFF? NO
[2018-09-11 06:56] LABS: WHITE BLOOD COUNT 7.5 10^3/ul (4.8-10.8)
[2018-09-11 06:56] LABS: BASOPHIL # 0.1 10^3/ul (0.0-0.1); BASOPHILS % 0.9 % (0.0-2.0); EOSINOPHILS # 0.2 10^3/ul (0.0-0.5); EOSINOPHILS % 2.4 % (0.0-7.0); HEMATOCRIT 49.6 % (42.0-52.0); HEMOGLOBIN 16.4 g/dl (14.0-18.0); LYMPHOCYTES # 1.1 10^3/ul (0.8-2.9); LYMPHOCYTES % 14.4 % (15.0-51.0); MEAN CORPUSCULAR HEMOGLOBIN 29.3 pg (29.0-33.0); MEAN CORPUSCULAR HGB CONC 33.1 g/dl (32.0-37.0); MEAN CORPUSCULAR VOLUME 88.7 fl (82.0-101.0); MEAN PLATELET VOLUME 11.3 fl (7.4-10.4); MONOCYTE # 1.3 10^3/ul (0.3-0.9); MONOCYTES % 17.8 % (0.0-11.0); NEUTROPHIL # 4.8 10^3/ul (1.6-7.5); NEUTROPHILS % 64.1 % (39.0-77.0); PLATELET COUNT 185 10^3/UL (140-415); RED BLOOD COUNT 5.59 10^6/ul (4.70-6.10); RED CELL DISTRIBUTION WIDTH 16.3 % (11.5-14.5)
[2018-09-11 07:20] LABS: MAGNESIUM 2.1 mg/dl (1.7-2.5)
[2018-09-11 07:21] LABS: ANION GAP 12 (5-13); BLOOD UREA NITROGEN 65 mg/dl (7-20); CALCIUM 9.2 mg/dl (8.4-10.2); CARBON DIOXIDE 28 mmol/L (21-31); CHLORIDE 99 mmol/L (97-110); CREATININE 1.44 mg/dl (0.61-1.24); Estimated GFR 49 mL/min (>60); GLUCOSE 177 mg/dl (70-220); POTASSIUM 3.7 mmol/L (3.5-5.1); SODIUM 139 mmol/L (135-144)
[2018-09-11] MEDS: FUROSEMIDE 40 MG TAB GTB (08:20)
[2018-09-11] MEDS: LISINOPRIL 20 MG TAB PO ×2 (08:20→21:28)
[2018-09-11] MEDS: SPIRONOLACTONE 25 MG TAB PO (08:20)
[2018-09-11] MEDS: FAMOTIDINE 20 MG TAB PO ×2 (08:20→21:28)
[2018-09-11] MEDS: METOLAZONE 5 MG TAB PO (08:21)
[2018-09-11] MEDS: morphine 2 MG INJ IV (08:25)
[2018-09-11] MEDS ORDERED: traMADol 50 MG TAB PO (12:00)
[2018-09-11] MEDS: TAMSULOSIN (SR) 0.4 MG CAP PO (21:28)
[2018-09-12] MEDS: CEFAZOLIN 1 GM/50 ML (PMX) 50 ML IVPB ×2 (05:04→13:30)
[2018-09-12 07:52] LABS: ANION GAP 13 (5-13); BLOOD UREA NITROGEN 60 mg/dl (7-20); CALCIUM 9.3 mg/dl (8.4-10.2); CARBON DIOXIDE 26 mmol/L (21-31); CHLORIDE 99 mmol/L (97-110); CREATININE 1.18 mg/dl (0.61-1.24); Estimated GFR > 60 mL/min (>60); GLUCOSE 224 mg/dl (70-220); POTASSIUM 3.4 mmol/L (3.5-5.1); SODIUM 138 mmol/L (135-144)
[2018-09-12] MEDS: SPIRONOLACTONE 25 MG TAB PO (08:14)
[2018-09-12] MEDS: FUROSEMIDE 40 MG TAB GTB (08:14)
[2018-09-12] MEDS: FAMOTIDINE 20 MG TAB PO (08:14)
[2018-09-12] MEDS: METOLAZONE 5 MG TAB PO (08:15)
[2018-09-12] MEDS: LISINOPRIL 20 MG TAB PO (08:15)
[2018-09-12] MEDS: POTASSIUM CHLORIDE (SR) 20 MEQ TAB PO (11:49)
[2018-09-12] MEDS: APIXABAN 5 MG TABLET PO (11:49)
== END 2018-09-12 18:05 | disposition home health service (06) | DRG 226 ==
LOC: ICU 09-07 01:08 → TEL 09-08 04:50 → E/R 01:37 → TEL 05:12
PROC: 0JH608Z Insertion of Defibrillator Generator into Chest Subcutaneous Tissue and Fascia, Open Approach (ICD-10-PCS; principal; 2018-09-09 13:30)
PROC: 02HK3KZ Insertion of Defibrillator Lead into Right Ventricle, Percutaneous Approach (ICD-10-PCS; 2018-09-09 13:30)
DX: I11.0 Hypertensive heart disease with heart failure (principal); J96.01 Acute respiratory failure with hypoxia; N17.9 Acute kidney failure, unspecified; I49.5 Sick sinus syndrome; I48.2 Chronic atrial fibrillation; I50.43 Acute on chronic combined systolic (congestive) and diastolic (congestive) heart failure; I25.5 Ischemic cardiomyopathy; I49.8 Other specified cardiac arrhythmias; N40.0 Benign prostatic hyperplasia without lower urinary tract symptoms; Z79.01 Long term (current) use of anticoagulants; Z79.02 Long term (current) use of antithrombotics/antiplatelets; Z91.19 Patient's noncompliance with other medical treatment and regimen; Z91.14 Patient's other noncompliance with medication regimen; Z87.891 Personal history of nicotine dependence
CPT/HCPCS: 33249; 36600; 70450; 71045; 71250; 74176; 80048; 80053; 80061; 82550; 82553; 82803; 83735; 83880; 84100; 84443; 84484; 85025; 85610; 93005; 94640; 94664; 97161; G0378

== ENCOUNTER 2018-10-18 18:21 | Observation (INO) | payer MEDICARE, BC ==
[2018-10-18 19:05] LABS: ADD MAN DIFF? NO
[2018-10-18 19:09] LABS: WHITE BLOOD COUNT 6.5 10^3/ul (4.8-10.8)
[2018-10-18 19:09] LABS: BASOPHILS % 0.5 % (0.0-2.0); EOSINOPHILS # 0.1 10^3/ul (0.0-0.5); EOSINOPHILS % 0.8 % (0.0-7.0); HEMATOCRIT 48.7 % (42.0-52.0); HEMOGLOBIN 16.6 g/dl (14.0-18.0); LYMPHOCYTES # 0.8 10^3/ul (0.8-2.9); LYMPHOCYTES % 12.7 % (15.0-51.0); MEAN CORPUSCULAR HEMOGLOBIN 30.2 pg (29.0-33.0); MEAN CORPUSCULAR HGB CONC 34.1 g/dl (32.0-37.0); MEAN CORPUSCULAR VOLUME 88.5 fl (82.0-101.0); MEAN PLATELET VOLUME 9.6 fl (7.4-10.4); MONOCYTE # 0.8 10^3/ul (0.3-0.9); MONOCYTES % 12.6 % (0.0-11.0); NEUTROPHIL # 4.7 10^3/ul (1.6-7.5); NEUTROPHILS % 73.1 % (39.0-77.0); PLATELET COUNT 201 10^3/UL (140-415); RED CELL DISTRIBUTION WIDTH 16.1 % (11.5-14.5)
[2018-10-18 19:31] LABS: INR 1.26; PROTIME 15.9 Sec (11.9-14.9); PT RATIO 1.2
[2018-10-18 19:34] LABS: ADD UMIC NO; UR ASCORBIC ACID NEGATIVE (NEGATIVE); UR BILIRUBIN (Dip) NEGATIVE (NEGATIVE); UR BLOOD (Dip) NEGATIVE (NEGATIVE); UR CLARITY CLEAR (CLEAR); UR COLOR YELLOW (YELLOW); UR GLUCOSE (Dip) NEGATIVE (NEGATIVE); UR KETONES (Dip) TRACE mg/dL (NEGATIVE); UR LEUKOCYTE ESTERASE (Dip) NEGATIVE Leu/ul (NEGATIVE); UR NITRITE (Dip) NEGATIVE (NEGATIVE); UR SPECIFIC GRAVITY (Dip) 1.009 (1.003-1.030); UR TOTAL PROTEIN (Dip) NEGATIVE (NEGATIVE); UR UROBILINOGEN (Dip) NEGATIVE (NEGATIVE)
[2018-10-18 19:44] LABS: ALANINE AMINOTRANSFERASE 16 IU/L (13-69); ALBUMIN 4.4 g/dl (3.3-4.9); ALBUMIN/GLOBULIN RATIO 1.18; ALKALINE PHOSPHATASE 131 IU/L (42-121); ANION GAP 14 (5-13); ASPARTATE AMINO TRANSFERASE 25 IU/L (15-46); BILIRUBIN,INDIRECT 2.8 mg/dl (0-1.1); BILIRUBIN,TOTAL 2.8 mg/dl (0.2-1.3); BLOOD UREA NITROGEN 18 mg/dl (7-20); CALCIUM 10.2 mg/dl (8.4-10.2); CARBON DIOXIDE 26 mmol/L (21-31); CHLORIDE 101 mmol/L (97-110); CREATININE 1.15 mg/dl (0.61-1.24); Estimated GFR > 60 mL/min (>60); GLUCOSE 171 mg/dl (70-220); POTASSIUM 3.6 mmol/L (3.5-5.1); SODIUM 141 mmol/L (135-144); TOTAL PROTEIN 8.1 g/dl (6.1-8.1)
[2018-10-18 19:54] LABS: B-TYPE NATRIURETIC PEPTIDE 12500 PG/ML (0-125)
[2018-10-18] MEDS: FUROSEMIDE 40 MG INJ IV (20:28)
[2018-10-19] MEDS ORDERED: ACETAMINOPHEN 325 MG TAB PO
[2018-10-19] MEDS ORDERED: ONDANSETRON 4 MG INJ IV
[2018-10-19] MEDS ORDERED: ZOLPIDEM 5 MG TAB PO
[2018-10-19] MEDS ORDERED: traMADol 50 MG TAB PO
[2018-10-19] MEDS ORDERED: morphine 4 MG/ML VIAL IV ×2
[2018-10-19] MEDS: METOPROLOL 50 MG TAB PO ×2 (01:17→08:43)
[2018-10-19] MEDS: LISINOPRIL 20 MG TAB PO ×2 (01:17→08:43)
[2018-10-19 03:06] LABS: TROPONIN-I 0.073 ng/ml (0.000-0.120)
[2018-10-19] MEDS: FUROSEMIDE 40 MG INJ IV ×3 (05:33→16:15)
[2018-10-19 06:28] LABS: TROPONIN-I 0.066 ng/ml (0.000-0.120)
[2018-10-19] MEDS: POTASSIUM CHLORIDE (SR) 20 MEQ TAB PO (08:43)
[2018-10-19] MEDS: APIXABAN 5 MG TABLET PO (08:43)
[2018-10-19] MEDS: METOLAZONE 5 MG TAB PO (08:44)
[2018-10-19] MEDS ORDERED: TAMSULOSIN (SR) 0.4 MG CAP PO (21:00)
[2018-10-21] MEDS ORDERED: POTASSIUM CHLORIDE (SR) 20 MEQ TAB PO (09:00)
== END 2018-10-19 17:20 | disposition home health service (06) ==
LOC: E/R 18:21 → 6WM 21:10
DX: I11.0 Hypertensive heart disease with heart failure (principal); I50.41 Acute combined systolic (congestive) and diastolic (congestive) heart failure; I25.5 Ischemic cardiomyopathy; I25.10 Atherosclerotic heart disease of native coronary artery without angina pectoris; N40.0 Benign prostatic hyperplasia without lower urinary tract symptoms; I48.2 Chronic atrial fibrillation; Z87.891 Personal history of nicotine dependence; Z86.73 Personal history of transient ischemic attack (TIA), and cerebral infarction without residual deficits; Z95.810 Presence of automatic (implantable) cardiac defibrillator; Z79.01 Long term (current) use of anticoagulants
CPT/HCPCS: 71045; 80053; 81003; 83880; 84484; 85025; 85610; 93005; 93306; 96374; 99285-25; G0378

== ENCOUNTER 2019-03-04 09:19 | Emergency (ER) | payer MEDICARE, BC ==
[2019-03-04 09:59] LABS: ADD MAN DIFF? NO
[2019-03-04 10:03] LABS: WHITE BLOOD COUNT 5.7 10^3/ul (4.8-10.8)
[2019-03-04 10:03] LABS: BASOPHILS % 0.5 % (0.0-2.0); EOSINOPHILS # 0.1 10^3/ul (0.0-0.5); EOSINOPHILS % 2.3 % (0.0-7.0); HEMATOCRIT 46.6 % (42.0-52.0); HEMOGLOBIN 15.3 g/dl (14.0-18.0); LYMPHOCYTES % 17.1 % (15.0-51.0); MEAN CORPUSCULAR HEMOGLOBIN 29.1 pg (29.0-33.0); MEAN CORPUSCULAR HGB CONC 32.8 g/dl (32.0-37.0); MEAN CORPUSCULAR VOLUME 88.6 fl (82.0-101.0); MEAN PLATELET VOLUME 10.2 fl (7.4-10.4); MONOCYTE # 0.7 10^3/ul (0.3-0.9); MONOCYTES % 11.9 % (0.0-11.0); NEUTROPHIL # 3.9 10^3/ul (1.6-7.5); NEUTROPHILS % 67.9 % (39.0-77.0); PLATELET COUNT 172 10^3/UL (140-415); RED BLOOD COUNT 5.26 10^6/ul (4.70-6.10); RED CELL DISTRIBUTION WIDTH 16.9 % (11.5-14.5)
[2019-03-04] MEDS: IPRATROPIUM (NEB) 0.5 MG/2.5 ML AMP INH (10:05)
[2019-03-04] MEDS: ALBUTEROL 0.083% (NEB) 2.5 MG/3 ML AMP INH (10:05)
[2019-03-04 10:21] LABS: ALANINE AMINOTRANSFERASE 24 IU/L (13-69); ALBUMIN/GLOBULIN RATIO 1.17; ALKALINE PHOSPHATASE 106 IU/L (42-121); ANION GAP 16 (5-13); ASPARTATE AMINO TRANSFERASE 24 IU/L (15-46); BILIRUBIN,INDIRECT 1.2 mg/dl (0-1.1); BILIRUBIN,TOTAL 1.2 mg/dl (0.2-1.3); BLOOD UREA NITROGEN 20 mg/dl (7-20); CALCIUM 8.8 mg/dl (8.4-10.2); CARBON DIOXIDE 20 mmol/L (21-31); CHLORIDE 111 mmol/L (97-110); CREATININE 1.07 mg/dl (0.61-1.24); Estimated GFR > 60 mL/min (>60); GLUCOSE 127 mg/dl (70-220); POTASSIUM 4.4 mmol/L (3.5-5.1); SODIUM 147 mmol/L (135-144); TOTAL PROTEIN 7.4 g/dl (6.1-8.1)
[2019-03-04 10:27] LABS: INR 1.08; PROTIME 14.1 Sec (11.9-14.9); PT RATIO 1.1
[2019-03-04 10:33] LABS: B-TYPE NATRIURETIC PEPTIDE 3530 PG/ML (0-125); TROPONIN-I 0.032 ng/ml (0.000-0.120)
[2019-03-04] MEDS: FUROSEMIDE 40 MG INJ IV (10:56)
[2019-03-04] MEDS: NITROGLYCERIN 2% 1 GM OINT PKT TD (10:56)
[2019-03-04] MEDS ORDERED: ACETAMINOPHEN 325 MG TAB PO (11:00)
[2019-03-04] MEDS ORDERED: ONDANSETRON 4 MG INJ IV (11:00)
== END 2019-03-04 12:35 | disposition left against medical advice (07) ==
LOC: E/R 09:19
DX: I50.43 Acute on chronic combined systolic (congestive) and diastolic (congestive) heart failure (principal); I10 Essential (primary) hypertension; F10.129 Alcohol abuse with intoxication, unspecified; R40.2142 Coma scale, eyes open, spontaneous, at arrival to emergency department; R40.2362 Coma scale, best motor response, obeys commands, at arrival to emergency department; R40.2252 Coma scale, best verbal response, oriented, at arrival to emergency department
CPT/HCPCS: 36415; 71045; 80053; 83605; 83880; 84484; 85025; 85610; 85730; 93005; 94664; 96374; 99285-25

== ENCOUNTER 2019-03-21 16:17 | Emergency (ER) | payer MEDICARE, BC ==
[2019-03-21 17:32] LABS: ADD MAN DIFF? NO
[2019-03-21 17:36] LABS: WHITE BLOOD COUNT 6.7 10^3/ul (4.8-10.8)
[2019-03-21 17:36] LABS: BASOPHILS % 0.2 % (0.0-2.0); EOSINOPHILS # 0.1 10^3/ul (0.0-0.5); EOSINOPHILS % 1.8 % (0.0-7.0); HEMATOCRIT 48.8 % (42.0-52.0); HEMOGLOBIN 16.6 g/dl (14.0-18.0); MEAN CORPUSCULAR HEMOGLOBIN 29.4 pg (29.0-33.0); MEAN CORPUSCULAR VOLUME 86.5 fl (82.0-101.0); MEAN PLATELET VOLUME 10.5 fl (7.4-10.4); MONOCYTE # 0.6 10^3/ul (0.3-0.9); MONOCYTES % 9.5 % (0.0-11.0); NEUTROPHIL # 4.9 10^3/ul (1.6-7.5); NEUTROPHILS % 72.9 % (39.0-77.0); PLATELET COUNT 165 10^3/UL (140-415); RED BLOOD COUNT 5.64 10^6/ul (4.70-6.10); RED CELL DISTRIBUTION WIDTH 16.1 % (11.5-14.5)
[2019-03-21 18:04] LABS: ANION GAP 8 (5-13); BLOOD UREA NITROGEN 28 mg/dl (7-20); CALCIUM 9.2 mg/dl (8.4-10.2); CARBON DIOXIDE 28 mmol/L (21-31); CHLORIDE 103 mmol/L (97-110); CREATININE 0.96 mg/dl (0.61-1.24); Estimated GFR > 60 mL/min (>60); GLUCOSE 219 mg/dl (70-220); SODIUM 139 mmol/L (135-144)
[2019-03-21 18:25] LABS: ADD UMIC YES; UR ASCORBIC ACID NEGATIVE (NEGATIVE); UR BACTERIA FEW /HPF (NONE SEEN); UR BILIRUBIN (Dip) NEGATIVE (NEGATIVE); UR BLOOD (Dip) NEGATIVE (NEGATIVE); UR CLARITY CLEAR (CLEAR); UR COLOR YELLOW (YELLOW); UR GLUCOSE (Dip) 1+ mg/dL (NEGATIVE); UR KETONES (Dip) NEGATIVE (NEGATIVE); UR LEUKOCYTE ESTERASE (Dip) NEGATIVE Leu/ul (NEGATIVE); UR NITRITE (Dip) NEGATIVE (NEGATIVE); UR RBC 0 /HPF (0-5); UR SPECIFIC GRAVITY (Dip) 1.019 (1.003-1.030); UR TOTAL PROTEIN (Dip) 1+ mg/dl (NEGATIVE); UR UROBILINOGEN (Dip) 2+ mg/dL (NEGATIVE); UR WBC 1 /HPF (0-5)
[2019-03-21] MEDS: FUROSEMIDE 40 MG INJ IV (18:43)
[2019-03-21 18:46] LABS: ALANINE AMINOTRANSFERASE 33 IU/L (13-69); ALBUMIN 3.9 g/dl (3.3-4.9); ALBUMIN/GLOBULIN RATIO 1.18; ALKALINE PHOSPHATASE 111 IU/L (42-121); ANION GAP 7 (5-13); ASPARTATE AMINO TRANSFERASE 28 IU/L (15-46); BILIRUBIN,INDIRECT 1.6 mg/dl (0-1.1); BILIRUBIN,TOTAL 1.6 mg/dl (0.2-1.3); BLOOD UREA NITROGEN 28 mg/dl (7-20); CALCIUM 9.2 mg/dl (8.4-10.2); CARBON DIOXIDE 29 mmol/L (21-31); CHLORIDE 103 mmol/L (97-110); CREATININE 0.98 mg/dl (0.61-1.24); Estimated GFR > 60 mL/min (>60); GLUCOSE 216 mg/dl (70-220); POTASSIUM 4.5 mmol/L (3.5-5.1); SODIUM 139 mmol/L (135-144); TOTAL PROTEIN 7.2 g/dl (6.1-8.1)
[2019-03-21 18:58] LABS: TROPONIN-I 0.016 ng/ml (0.000-0.120)
[2019-03-21] MEDS: ALBUTEROL 0.5% (NEB) 2.5 MG/0.5 ML AMP INH (19:35)
== END 2019-03-21 21:10 | disposition home or self-care (01) ==
LOC: E/R 16:17
DX: J44.1 Chronic obstructive pulmonary disease with (acute) exacerbation (principal); E11.65 Type 2 diabetes mellitus with hyperglycemia; I11.0 Hypertensive heart disease with heart failure; I50.9 Heart failure, unspecified; Z79.4 Long term (current) use of insulin; Z95.0 Presence of cardiac pacemaker; Z86.79 Personal history of other diseases of the circulatory system
CPT/HCPCS: 36415; 71045; 80048; 80053; 81001; 82962; 84484; 85025; 93005; 94644; 96374; 99285-25

== ENCOUNTER 2019-03-22 03:45 | Observation (INO) | payer MEDICARE, BC ==
[2019-03-22 04:02] LABS: ADD MAN DIFF? NO
[2019-03-22] MEDS: ALBUTEROL 0.5% (NEB) 2.5 MG/0.5 ML AMP INH (04:02)
[2019-03-22 04:18] LABS: BASOPHILS % 0.4 % (0.0-2.0); EOSINOPHILS # 0.1 10^3/ul (0.0-0.5); EOSINOPHILS % 1.3 % (0.0-7.0); HEMATOCRIT 44.9 % (42.0-52.0); HEMOGLOBIN 15.4 g/dl (14.0-18.0); LYMPHOCYTES # 1.1 10^3/ul (0.8-2.9); LYMPHOCYTES % 12.8 % (15.0-51.0); MEAN CORPUSCULAR HEMOGLOBIN 29.4 pg (29.0-33.0); MEAN CORPUSCULAR HGB CONC 34.3 g/dl (32.0-37.0); MEAN CORPUSCULAR VOLUME 85.7 fl (82.0-101.0); MEAN PLATELET VOLUME 11.4 fl (7.4-10.4); MONOCYTE # 0.8 10^3/ul (0.3-0.9); MONOCYTES % 9.4 % (0.0-11.0); NEUTROPHIL # 6.2 10^3/ul (1.6-7.5); NEUTROPHILS % 75.4 % (39.0-77.0); PLATELET COUNT 153 10^3/UL (140-415); RED BLOOD COUNT 5.24 10^6/ul (4.70-6.10); RED CELL DISTRIBUTION WIDTH 16.6 % (11.5-14.5)
[2019-03-22 04:18] LABS: WHITE BLOOD COUNT 8.2 10^3/ul (4.8-10.8)
[2019-03-22 04:19] LABS: ALANINE AMINOTRANSFERASE 30 IU/L (13-69); ALBUMIN 3.4 g/dl (3.3-4.9); ALBUMIN/GLOBULIN RATIO 1.21; ALKALINE PHOSPHATASE 96 IU/L (42-121); ANION GAP 10 (5-13); ASPARTATE AMINO TRANSFERASE 23 IU/L (15-46); BLOOD UREA NITROGEN 34 mg/dl (7-20); CALCIUM 8.8 mg/dl (8.4-10.2); CARBON DIOXIDE 24 mmol/L (21-31); CHLORIDE 105 mmol/L (97-110); CREATININE 0.98 mg/dl (0.61-1.24); Estimated GFR > 60 mL/min (>60); GLUCOSE 260 mg/dl (70-220); LIPASE 378 U/L (23-300); POTASSIUM 3.9 mmol/L (3.5-5.1); SODIUM 139 mmol/L (135-144); TOTAL PROTEIN 6.2 g/dl (6.1-8.1)
[2019-03-22 04:27] LABS: ETHANOL < 10.0 mg/dl (0-0)
[2019-03-22 04:30] LABS: B-TYPE NATRIURETIC PEPTIDE 3430 PG/ML (0-125); TROPONIN-I 0.028 ng/ml (0.000-0.120)
[2019-03-22] MEDS: METHYLPREDNISOLONE 125 MG INJ IV (05:00)
[2019-03-22] MEDS: FUROSEMIDE 40 MG INJ IV ×3 (05:34→17:43)
[2019-03-22 07:44] LABS: Allen Test ACCEPTAB; Arterial Base Excess -0.3 mmol/L (-3.0-3); Arterial COHb 0.7 % (0.0-3.0); Arterial Fraction of Oxyhgb 97.1 % (93.0-99.0); Arterial HCO3 21.8 mmol/L (22.0-26.0); Arterial MetHb 0.2 % (0.0-1.5); Arterial pCO2 29.5 mmhg (35-45); MODE NASAL CANNULA; Site Left Radial
[2019-03-22] MEDS ORDERED: GLUCOSE GEL 15 GRAM TUBE BUCCAL (10:00)
[2019-03-22] MEDS ORDERED: DEXTROSE 50% 50 ML SYRINGE IV ×2 (10:00)
[2019-03-22] MEDS ORDERED: GLUCOSE GEL 15 GRAM TUBE PO ×2 (10:00)
[2019-03-22] MEDS ORDERED: GLUCAGON 1 MG INJ IM (10:00)
[2019-03-22] MEDS: PANTOPRAZOLE (EC) 40 MG TAB PO (10:35)
[2019-03-22] MEDS: METOPROLOL 50 MG TAB PO ×2 (10:35→21:00)
[2019-03-22] MEDS: ENALAPRIL 5 MG TAB PO ×2 (11:56→21:14)
[2019-03-22] MEDS: INSULIN ASPART [NOVOLOG] 3 ML PEN SC ×3 (12:09→21:31)
[2019-03-22] MEDS: metFORMIN 500 MG TAB PO (17:20)
[2019-03-22] MEDS: TAMSULOSIN (SR) 0.4 MG CAP PO (21:14)
[2019-03-22] MEDS: ATORVASTATIN 20 MG TAB PO (21:14)
[2019-03-22] MEDS: INSULIN GLARGINE [LANTus] (100 UNITS/ML) SYG SC (21:30)
[2019-03-23] MEDS: PANTOPRAZOLE (EC) 40 MG TAB PO (06:48)
[2019-03-23] MEDS: FUROSEMIDE 40 MG INJ IV (06:49)
[2019-03-23 07:07] LABS: ANION GAP 10 (5-13); BLOOD UREA NITROGEN 35 mg/dl (7-20); CALCIUM 8.7 mg/dl (8.4-10.2); CARBON DIOXIDE 27 mmol/L (21-31); CHLORIDE 103 mmol/L (97-110); CREATININE 1.07 mg/dl (0.61-1.24); Estimated GFR > 60 mL/min (>60); GLUCOSE 201 mg/dl (70-220); POTASSIUM 3.6 mmol/L (3.5-5.1); SODIUM 140 mmol/L (135-144)
[2019-03-23] MEDS: INSULIN ASPART [NOVOLOG] 3 ML PEN SC ×2 (08:15→11:36)
[2019-03-23] MEDS: METOPROLOL 50 MG TAB PO (08:22)
[2019-03-23] MEDS: metFORMIN 500 MG TAB PO (08:22)
[2019-03-23] MEDS: ENALAPRIL 5 MG TAB PO (08:23)
== END 2019-03-23 12:52 | disposition home health service (06) ==
LOC: E/R 03:45 → TEL 05:10
DX: I11.0 Hypertensive heart disease with heart failure (principal); I50.21 Acute systolic (congestive) heart failure; I25.5 Ischemic cardiomyopathy; E11.9 Type 2 diabetes mellitus without complications; E78.5 Hyperlipidemia, unspecified; I48.2 Chronic atrial fibrillation; N40.0 Benign prostatic hyperplasia without lower urinary tract symptoms; J44.9 Chronic obstructive pulmonary disease, unspecified; Z91.14 Patient's other noncompliance with medication regimen; Z95.810 Presence of automatic (implantable) cardiac defibrillator; Z86.73 Personal history of transient ischemic attack (TIA), and cerebral infarction without residual deficits; Z79.01 Long term (current) use of anticoagulants; Z87.891 Personal history of nicotine dependence; Z79.4 Long term (current) use of insulin
CPT/HCPCS: 36415; 36600; 80048; 80053; 80307; 82803; 82962; 83690; 83880; 84484; 85025; 93005; 94644; 96374; 97161; 99217; 99285-25

== ENCOUNTER 2019-04-01 21:26 | Observation (INO) | payer MEDICARE, BC ==
[2019-04-01] MEDS ORDERED: FUROSEMIDE 100 MG INJ IV (23:32)
[2019-04-01] MEDS: FUROSEMIDE 40 MG INJ IV (23:49)
[2019-04-01 23:57] LABS: ADD MAN DIFF? NO
[2019-04-01 23:59] LABS: ABNORMAL IP MESSAGE 1; BASOPHILS % 0.4 % (0.0-2.0); EOSINOPHILS % 0.4 % (0.0-7.0); HEMATOCRIT 45.6 % (42.0-52.0); HEMOGLOBIN 15.4 g/dl (14.0-18.0); LYMPHOCYTES # 0.5 10^3/ul (0.8-2.9); LYMPHOCYTES % 7.4 % (15.0-51.0); MEAN CORPUSCULAR HEMOGLOBIN 29.3 pg (29.0-33.0); MEAN CORPUSCULAR HGB CONC 33.8 g/dl (32.0-37.0); MEAN CORPUSCULAR VOLUME 86.9 fl (82.0-101.0); MEAN PLATELET VOLUME 10.6 fl (7.4-10.4); MONOCYTE # 0.7 10^3/ul (0.3-0.9); MONOCYTES % 10.5 % (0.0-11.0); NEUTROPHIL # 5.6 10^3/ul (1.6-7.5); NEUTROPHILS % 80.9 % (39.0-77.0); PLATELET COUNT 163 10^3/UL (140-415); POSITIVE DIFF @See below; RED BLOOD COUNT 5.25 10^6/ul (4.70-6.10); RED CELL DISTRIBUTION WIDTH 17.2 % (11.5-14.5)
[2019-04-02 00:22] LABS: ALANINE AMINOTRANSFERASE 27 IU/L (13-69); ALBUMIN 4.3 g/dl (3.3-4.9); ALBUMIN/GLOBULIN RATIO 1.38; ALKALINE PHOSPHATASE 118 IU/L (42-121); ANION GAP 17 (5-13); ASPARTATE AMINO TRANSFERASE 28 IU/L (15-46); BILIRUBIN,INDIRECT 2.2 mg/dl (0-1.1); BILIRUBIN,TOTAL 2.2 mg/dl (0.2-1.3); BLOOD UREA NITROGEN 24 mg/dl (7-20); CALCIUM 9.1 mg/dl (8.4-10.2); CARBON DIOXIDE 19 mmol/L (21-31); CHLORIDE 104 mmol/L (97-110); CREATININE 1.07 mg/dl (0.61-1.24); Estimated GFR > 60 mL/min (>60); GLUCOSE 155 mg/dl (70-220); POTASSIUM 4.4 mmol/L (3.5-5.1); SODIUM 140 mmol/L (135-144); TOTAL PROTEIN 7.4 g/dl (6.1-8.1)
[2019-04-02 00:29] LABS: INR 1.12; PROTIME 14.5 Sec (11.9-14.9); PT RATIO 1.1
[2019-04-02 00:30] LABS: PARTIAL THROMBOPLASTIN TIME 37.1 Sec (23.0-35.0)
[2019-04-02 00:32] LABS: B-TYPE NATRIURETIC PEPTIDE 6100 PG/ML (0-125); TROPONIN-I 0.047 ng/ml (0.000-0.120)
[2019-04-02] MEDS: ONDANSETRON 4 MG INJ IV (00:42)
[2019-04-02] MEDS ORDERED: ACETAMINOPHEN 325 MG TAB PO ×2 (03:30→04:00)
[2019-04-02] MEDS ORDERED: ONDANSETRON 4 MG INJ IV (03:30)
[2019-04-02] MEDS ORDERED: DOCUSATE SODIUM 100 MG CAP PO (04:00)
[2019-04-02] MEDS ORDERED: NACL 0.9% 3 ML SYG IV (04:00)
[2019-04-02 04:06] LABS: LACTIC ACID 1.7 mmol/L (0.5-2.0)
[2019-04-02 05:04] LABS: ANION GAP 13 (5-13); BLOOD UREA NITROGEN 25 mg/dl (7-20); CALCIUM 9.2 mg/dl (8.4-10.2); CARBON DIOXIDE 25 mmol/L (21-31); CHLORIDE 103 mmol/L (97-110); Estimated GFR > 60 mL/min (>60); GLUCOSE 175 mg/dl (70-220); POTASSIUM 4.4 mmol/L (3.5-5.1); SODIUM 141 mmol/L (135-144)
[2019-04-02 05:08] LABS: HEMOGLOBIN A1C 6.6 % (0-5.9)
[2019-04-02 05:15] LABS: TROPONIN-I 0.056 ng/ml (0.000-0.120)
[2019-04-02] MEDS: FAMOTIDINE 20 MG TAB PO (05:42)
[2019-04-02] MEDS ORDERED: metFORMIN 500 MG TAB PO ×2 (08:00→18:00)
[2019-04-02] MEDS: ACCU-CHEK XX (08:24)
[2019-04-02] MEDS ORDERED: FUROSEMIDE 40 MG TAB PO (09:00)
[2019-04-02] MEDS: FUROSEMIDE 40 MG INJ IV (09:48)
[2019-04-02] MEDS: APIXABAN 5 MG TABLET PO (09:50)
[2019-04-02] MEDS: ENALAPRIL 5 MG TAB PO (09:50)
[2019-04-02] MEDS: METOPROLOL 50 MG TAB PO (09:51)
[2019-04-02] MEDS: metFORMIN 500 MG TAB PO (10:00)
[2019-04-02] MEDS ORDERED: TAMSULOSIN (SR) 0.4 MG CAP PO (21:00)
[2019-04-02] MEDS ORDERED: INSULIN DETEMIR [LEVEMIR] 3ML CART SC (21:00)
[2019-04-02] MEDS ORDERED: ATORVASTATIN 20 MG TAB PO (21:00)
[2019-04-02] MEDS ORDERED: INSULIN GLARGINE [LANTus] (100 UNITS/ML) SYG SC (21:00)
[2019-04-03] MEDS ORDERED: FUROSEMIDE 40 MG TAB PO (06:00)
== END 2019-04-02 12:46 | disposition home health service (06) ==
LOC: TEL 04-02 03:23 → E/R 21:26
DX: I11.0 Hypertensive heart disease with heart failure (principal); I50.43 Acute on chronic combined systolic (congestive) and diastolic (congestive) heart failure; J44.9 Chronic obstructive pulmonary disease, unspecified; I25.5 Ischemic cardiomyopathy; I48.2 Chronic atrial fibrillation; Z86.73 Personal history of transient ischemic attack (TIA), and cerebral infarction without residual deficits; Z95.810 Presence of automatic (implantable) cardiac defibrillator; Z79.01 Long term (current) use of anticoagulants; N40.0 Benign prostatic hyperplasia without lower urinary tract symptoms; Z91.14 Patient's other noncompliance with medication regimen; Z91.11 Patient's noncompliance with dietary regimen
CPT/HCPCS: 36415; 71045; 80048; 80053; 82962; 83036; 83605; 83880; 84443; 84484; 85025; 85610; 85730; 93005; 96374; 96375; 99285-25; G0378